=== PATIENT | male | born 1965 | race Caucasian/White ===

== ENCOUNTER 2023-09-07 15:38 | Emergency (ER) | payer OTHER, SELFPAY ==
[2023-09-07 15:47] VITALS: BP 138/96; PULSE 71; RESP 16; TEMP 36.6; O2SAT 99
--- NOTE | 2023-09-07 15:51 | ECG_ITS ---
[facility] [address] Test Date: 2023-09-07 Pat Name: Antonio Villagomez Department: Room: Gender: M Beer Brewer: : 1965 Requested By: Cecily Harmon Order Number: [id number] Reading MD: Jeff Villa D.O. Measurements Intervals [place] Rate: 72 P: 60 ID: [id number] QRS: -18 QRSD: 110 T: 3 QT: 389 QTc: 426 Interpretive Statements SINUS RHYTHM INCOMPLETE RIGHT BUNDLE BRANCH BLOCK BORDERLINE ECG No previous ECG available for comparison Electronically Signed On 09-11-2023 08:28:49 CDT by Jeff Villa D.O.
--- NOTE | 2023-09-07 16:14 | ED.CHESTPAIN ---
HPI - Chest Pain General Chief Complaint: Chest Pain Stated Complaint: Chest Pain Time Seen by Provider: 09/07/23 16:14 Source: patient Mode of arrival: ambulatory Limitations: no limitations History of Present Illness HPI narrative: 57-year-old male with history of high cholesterol presents today with complaint of left-sided chest pain radiating to left arm. Patient states that around 1:30 p.m. today he was cleaning out a garage and began to have left-sided chest pain. States that left-sided chest pain lasted approximately 30 minutes and then resolved. Continues to have aching to his left arm. Denies injury. Denies history of experiencing similar symptoms. States when he was experiencing the chest pain his friend checked his blood pressure and it was 158/102. Denies nausea vomiting. No dizziness or diaphoresis. Family history of NE. All systems reviewed and negative except as noted above. Related Data Home Medications Medication Instructions Recorded Confirmed dextroamphetamine-amphetamine 10 10 mg PO DAILY 09/07/23 09/07/23 mg tablet lorazepam 0.5 mg tablet 0.5 mg PO DIRECTED 09/07/23 09/07/23 pravastatin 10 mg tablet 10 mg PO DAILY 09/07/23 09/07/23 ropinirole 1 mg tablet 1 mg PO DIRECTED 09/07/23 09/07/23 Review of Systems Review of Systems: CONSTITUTIONAL: Denies fever, chills, or sweats. EYES: Denies visual changes, redness, or discharge. ENT: Denies rhinorrhea, congestion, sore throat, or otalgia. CARDIOVASCULAR: Reports left-sided chest pain radiating to left arm. Denies palpitations, or edema. RESPIRATORY: Denies cough or dyspnea. GASTROINTESTINAL: Denies abdominal pain, nausea, vomiting, or diarrhea. GENITOURINARY: Denies dysuria or hematuria. SKIN: Denies rash or itching. MUSCULOSKELETAL: Denies back pain, joint pain, or myalgia. NEUROLOGIC: Denies headache, numbness, or weakness. PSYCHIATRIC: Denies anxiety or depression. All other systems reviewed are negative, except as documented in HPI. PMFSH Comments At time of signature, agree with nursing past medical, surgical, social and family history. There is no relevant family history pertinent to the presenting complaint. Exam Narrative: GENERAL: This is a well-nourished, well-developed patient, in no apparent distress. HEAD: normocephalic, atraumatic. EYES: PERRL. Sclera clear/white. Vision is grossly intact. EARS: External ears normal NOSE: External nose normal NECK: Neck supple, non-tender without lymphadenopathy, masses or thyromegaly. CARDIOVASCULAR: Regular rate and rhythm without murmurs, gallops, or rubs. RESPIRATORY: Clear to auscultation. Breath sounds equal bilaterally. No wheezes, rales, or rhonchi. SKIN: warm, Dry, intact with no suspicious lesions or rash, good texture and turgor. NEURO: awake, alert, and oriented to person, place and time. There were no obvious focal neurologic abnormalities. EXTREMITIES: No joint tenderness, effusion, or edema noted. Course Course Level of Care: Express Care Visit Vital Signs Vital signs: Vital Signs Temperature 36.6 C 09/07/23 15:47 Pulse Rate 71 09/07/23 15:47 Respiratory Rate 16 09/07/23 15:47 Blood Pressure 138/96 H 09/07/23 15:47 Pulse Oximetry 99 09/07/23 15:47 Temperature 36.6 C 09/07/23 15:47 Pulse Rate 71 09/07/23 15:47 Respiratory Rate 16 09/07/23 15:47 Blood Pressure 138/96 H 09/07/23 15:47 Pulse Oximetry 99 09/07/23 15:47 Reviewed MDM - Chest Pain MDM Narrative Medical decision making narrative: Patient reports 30 minutes left-sided chest pain with radiation to arm. Left chest pain has resolved but continues to have aching to left arm. Vital signs are normal. Patient nontoxic appearing. Recommend patient go to ER for further evaluation with cardiac enzymes. Patient refused transfer. Stated he would call his primary care physician in the morning. Patient is aware of diagnosis, understands and agrees to treatmen
== END 2023-09-07 16:30 | disposition left against medical advice (07) ==
PROVIDERS: Emergency Provider Nurse Practitioner Family
DX: R07.9 Chest pain, unspecified (principal); I45.10 Unspecified right bundle-branch block; E78.00 Pure hypercholesterolemia, unspecified
CPT/HCPCS: 93005; 99213; G0463

== ENCOUNTER 2024-08-21 06:08 | Inpatient (IN) | payer OTHER, SELFPAY ==
[2024-08-21] VITALS (24 sets, daily range): BP systolic 115–169; BP diastolic 73–110; PULSE 62–90; RESP 10–24; TEMP 37–37.2; O2SAT 92–100; BMI 27.6
--- NOTE | 2024-08-21 06:19 | ECG_ITS ---
Test Date: 2024-08-21 06:14:49 Measurements Intervals [place] Rate: 59 P: 62 AR: 157 QRS: -18 QRSD: 101 T: -22 QT: 420 QTc: 417 Interpretive Statements SINUS BRADYCARDIA ST ELEVATION IN THE HIGH LATERAL LEADS WITH RECIPROCAL ST DEPRESSIONS Compared to ECG 09/07/2023 15:54:55 STEMI NOW PRESENT Electronically Signed On 08-23-2024 14:01:53 CDT by Sary Cornejo M.D.
[2024-08-21 06:31] LABS: Basophils Percent Auto 0.3 % (0.2-1.2); Eosinophils Absolute Auto 0.1 K/mm3 (0-0.3); Eosinophils Percent Auto 0.8 % (0-4.4); Hematocrit 38.4 % (42.0-52.0); Immature Granulocyte Absolute 0.02 K/mm3 (0.00-0.031); Immature Granulocyte Percent A 0.3 % (0-0.5); Lymphocytes Absolute Auto 2.83 K/mm3 (0.9-3.2); Lymphocytes Percent Auto 45.1 % (18.3-44.2); Mean Corpuscular HGB Conc 33.9 g/dl (32-36); Mean Corpuscular Hemoglobin 29.5 pg (26-34); Mean Corpuscular Volume 87.3 fl (80-100); Mean Platelet Volume 10.3 fl (7.4-10.4); Monocytes Absolute Auto 0.6 K/mm3 (0.1-0.6); Monocytes Percent Auto 9.7 % (2.6-8.5); Neutrophils Absolute Auto 2.8 K/mm3 (1.3-6.7); Neutrophils Percent Auto 43.8 % (45.5-73.1); Platelet Count Result 192 k/mm3 (150-375); Red Cell Distribution Width 13.3 % (11.5-14.5); White Blood Count 6.3 K/mm3 (4.5-10.0)
--- NOTE | 2024-08-21 06:33 | PC.NURSE ---
patient states he uses viagra. nitro sublinginal was not given at this time.
[2024-08-21] MEDS: MORPHINE SULFATE (*CRX) 2 MG/ML INJ IV PUSH (06:35)
--- OUTSIDE RECORDS SUMMARY | 2024-08-21 06:38 | XMS_ITS | Clinical Summary ---
Author Organization [facility] Address [address] [place] [address] Phone Care Team Providers Care Grades 7 8 Tutor Name Role Phone Dima Henson MD Primary Care Provider [phone] Allergies Active Allergy Reactions Criticality Noted Date Comments Hydromorphone (Bulk) Rash,Itching 08/03/2012 Medications oxyCODONE-acetam inophen (PERCOCET) 10-325 mg Oral Tab Take 1 Tab by mouth every 4 hours as needed for Pain, Severe (For Pain Scale 7-10). 90 Tab 0 08/04/2012 Active cyclobenzaprine (FLEXERIL) 10 mg Oral tablet Take 1 Tab by mouth 3 times daily as needed for Spasm. 60 Tab 1 08/04/2012 Active oxyCODONE (ROXICODONE) 10 mg Oral tablet Take 1 Tab by mouth every 3 hours as needed for Pain, Break-Throu gh. 90 Tab 0 08/05/2012 Active docusate sodium (COLACE) 100 mg Oral capsule Take 1 Cap by mouth 2 times daily as needed for Constipatio n. 60 Cap 1 08/05/2012 Active acetaminophen-co deine (TYLENOL #3) 300-30 mg tabletIndication s:Wound infection after surgery, subsequent encounter,MRSA infection 08/08/2015 Active baclofen (LIORESAL) 10 mg tabletIndication s:Wound infection after surgery, subsequent encounter,MRSA infection 09/12/2015 Active meloxicam (MOBIC) 15 mg tabletIndication s:Wound infection after surgery, subsequent encounter,MRSA infection 08/07/2015 Active ondansetron (ZOFRAN ODT) 8 mg Tablet, Rapid DissolveIndicati ons:Wound infection after surgery, subsequent encounter,MRSA infection 09/07/2015 Active rOPINIRole (REQUIP) 1 mg tabletIndication s:Wound infection after surgery, subsequent encounter,MRSA infection 08/28/2015 Active traMADol (ULTRAM) 50 mg tabletIndication s:Wound infection after surgery, subsequent encounter,MRSA infection 09/11/2015 Active traZODone (DESYREL) 50 mg tabletIndication s:Wound infection after surgery, subsequent encounter,MRSA infection 09/30/2015 Active Active Problems Problem Noted Date Diagnosed Date Wound infection after surgery 10/04/2015 MRSA infection 10/04/2015 Immunizations Immunization Administration Dates Next Due Influenza Seasonal Unspecified Formulation IM Social History Tobacco Use Types Packs/Day Years Used Date Smoking Tobacco: Former Alcohol Use Standard Drinks/Week Comments Yes 0 (1 standard drink = 0.6 oz pur e alcohol) socially Sex and Gender Information Value Date Recorded Sex Assigned at Not on file 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 Gender Identity Not on file Sexual Orientation Not on file Occupation Industry Job Start Date Job End Date Not on file Not on file Not on file Not on file Last Filed Vital Signs Vital Sign Reading Time Taken Comments Blood Pressure 138/93 10/04/2015 9:05 AM CDT Pulse 96 10/04/2015 9:05 AM CDT Temperature 36.9 C (98.5 F) 10/04/2015 9:05 AM CDT Respiratory Rate 18 08/05/2012 5:45 AM CDT Oxygen Saturation 98% 08/05/2012 5:45 AM CDT Inhaled Oxygen Concentration - - Weight 75.5 kg (166 lb 6.4 oz) 10/04/2015 9:05 A M CDT Height 170.2 cm (5' 7 ) 10/04/2015 9:05 AM CDT Body Mass Index 26.06 10/04/2015 9:05 AM CDT Plan of Treatment Health Maintenance Due Date Last Done Comments DTAP/TDAP/TD VACCINES (1 - Tdap) 10/16/1986 HEPATITIS B VACCINES (1 of 3 - 19+ 3-dose series) 09/1986 COLORECTAL SCREENING 10/16/2012 Colorectal Cancer Screening 10/16/2012 FIT-DNA Q 3 years 10/16/2012 FIT/FOBT Q 1 year 10/16/2012 Flex Sig/CT Colonography Q 5 years 10/16/2012 ZOSTER VACCINE (1 of 2) 10/16/2017 INFLUENZA VACCINE (#1) 2023 01/26/2012 Medical Devices Implanted Type Area Cutting Machine Offbearer Device Identifier Shelf Expiration Date Model / Serial / Lot Nail Retro Fem [place] 13x32 [id number] - [id number] Implanted:Qty: 1 on 08/03/2012 at [facility] Nail Right: Femur D[employer]HEW ORTHO 01/10/2017 [id number] / / [id number] Screw Trgn Lp 5.0x35mm [id number] - [id number] Implanted:Qty: 1 on 08/03/2012 at [facility] Screw Right: Femur D[employer]HEW ORTHO 05/13/2022 [id number] / / [id number] Screw Trgn Lp 5.0x75mm [id number] - [id number] Implanted:Qty: 1 on 08/03/2012 at [facility] Screw Right: Femur D[employer]PHEW ORTHO 12/11/2021 [id number] / / [id number] Explanted Type Area Cutting Machine Offbearer Device Identifier Shelf Expiration Date Model / Serial / Lot [employer] Nephew Im Nail Explanted:Qty: 1 on 08/03/2012 by Yojana Frances MD at [facility] Nail Right: Leg Synthes Screws Explanted:Qty: 2 by Yojana Frances MD at [facility] Screw Right: Leg [employer]hew Screws Explanted:Qty: 3 by Yojana Frances MD at [facility] Screw Right: Leg Screw Trgn Intrnl Cap 5.0x60mm [id number] - [id number] Explanted:Qty: 1 at [facility] Screw Right: Femur D[employer] NEPHEW ORTHO 06/10/2022 [id number] / / [id number] Insurance [id number] [place], [place] [id number] [facility] Address[facility] [id number] [place] [address] Advance Directives For more information, please contact: [phone] * Full Code (Latest Code Status on File) Date Activated Date Inactivated Comments 08/03/2012 1:47 PM 08/05/2012 8:11 PM * Full Code Date Activated Date Inactivated Comments 08/03/2012 6:41 AM 08/03/2012 1:47 PM Care Teams Grades 7 8 Tutor Relationship Specialty Start Date End Date Dima Henson MD [address] [facility] [address] [place] [address] PCP - General Internal Medicine 10/04/15
--- OUTSIDE RECORDS SUMMARY | 2024-08-21 06:38 | XMS_ITS | Clinical Summary ---
Author Organization [facility] [employer] Address [address] [place] [address] Care Team Providers Care Information Resources Director Name Role Phone Bandar Patricio APRN-DRAW BENCH OPERATOR Primary Care Provider Source Comments [facility],non-owned Affiliates and Associated Physician Practices is amultiple site organization consisting of ambulatory clinics and hospital sitesin [place], [place], [place] and [place]. This disclosure is being madepursuant to the Care Everywhere program and may not contain all information available regarding this patient. Last updated 18.[facility] [employer] Allergies Active Allergy Reactions Criticality Noted Date Comments Sulfamethoxazole W-Trimethoprim Rash Medium 05/14 Medications * Be aware that medications may not be up to date on this document. Alwaysverify current medications with the patient. 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 Continue Adderall. Methicillin resistant Staphylococcus aureus infe ction 05/05/2016 Atopic rhinitis 08/27/2013 Overview (06/19/2022): ALLERGIC RHINITIS NOS Benign neoplasm of skin of trunk 05/27/2011 Immunizations Immunization Administration Dates Next Due INFLUENZA VACCINE 03/05/2022 Social History Tobacco Use Types Packs/Day Years Used Date Smoking Tobacco: Every Day Cigarettes Smokeless Tobacco: Former Quit: 03/26/2012 Tobacco Cessation:Ready to Q uit: Not Asked; Counseling Given: Not Answered Alcohol Use Standard Drinks/Week Comments Not Asked 0 (1 standard drink = 0.6 oz pur e alcohol) Sex and Gender Information Value Date Recorded Sex Assigned at Not on file Legal Sex Male 6:31 AM ROLLER HELPER Gender Identity Not on file Sexual Orientation Not on file Last Filed Vital Signs Vital Sign Reading Time Taken Comments Blood Pressure 122/74 05/29/2018 12:15 PM ROLLER HELPER Pulse 79 05/29/2018 12:15 PM ROLLER HELPER Temperature 36.7 C (98.1 F) 05/29/2018 12:15 PM ROLLER HELPER Respiratory Rate 18 05/29/2018 12:15 PM ROLLER HELPER Oxygen Saturation 98% 05/29/2018 12:15 PM ROLLER HELPER Inhaled Oxygen Concentration - - Weight 73.5 kg (162 lb) 07/13/2023 8:58 AM CDT Height 170.2 cm (5' 7 ) 03/24/2013 8:37 AM ROLLER HELPER Body Mass Index - - Plan of Treatment Health Maintenance Due Date Last Done Comments COLOGUARD (AGES 45-75) - COLON CA SCREENING 1965 COLON MONITORING 1965 COLONOSCOPY - COLON CA SCREENING 1967 CT COLONOGRAPHY - COLON CA SCREENING 1965 Colorectal Cancer Screening 1965 FIT - COLON CA SCREENING 1965 FLEX SIG - COLON CA SCREENING 1965 HIV SCREENING 10/16/1982 HEPATITIS C SCREENING 10/12/1985 DTAP/TDAP/TD VACCINES (1 - Tdap) 10/16/1986 HEPATITIS B VACCINE (1 of 3 - 19+ 3-dose series) 10/16/1986 PNEUMOCOCCAL VACCINE 50+ (1 of 2 - PCV) 10/16/1986 ZOSTER VACCINE (1 of 2) 10/16/2017 COVID-19 VACCINE (1 - season) 2023 DEPRESSION SCREENING 04/13/2024 INFLUENZA VACCINE (Season Ended) 2024 03/05/2022, 01/18/2019, 12/28/2015, Additional history exists HIB VACCINE Aged Out No longer eligi ble based on patient's age to complete this topic HPV VACCINE Aged Out No longer eligi ble based on patient's age to complete this topic MENINGOCOCCAL (Group B) VACCINE SHARED DECISION-MAKING Aged Out No longer eligible based on patient's age to complete this topic MENINGOCOCCAL GROUPS A/C/Y/W VACCINE Aged Out No longer eligible based on patient's age to complete this topic Insurance [facility] Care Teams Information Resources Director Relationship Specialty Start Date End Date Bandar Patricio APRN-DRAW BENCH OPERATOR [address] [place] [id number] PCP - General Nurse Practitioner Primary Care 12/01/23
--- OUTSIDE RECORDS SUMMARY | 2024-08-21 06:38 | XMS_ITS | Encounter Summary ---
Author Organization [facility] Address [address] [place] [address] Care Team Providers Care Presto Log Operator Name Role Phone Dima Henson MD Primary Care Provider [phone] Reason for Visit * Reason Comments Medication Refill Encounter Details Date Type Department Care Team (Late st Contact Info) Description 04/01/2013 Refill [facility] Orthopaedic Trauma Surgery [address] [phone] Yojana Frances MD NO ADDRESS ON FILE Social History Tobacco Use Types Packs/Day Years Used Date Smoking Tobacco: Former Alcohol Use Standard Drinks/Week Comments Yes 0 (1 standard drink = 0.6 oz pur e alcohol) socially Sex and Gender Information Value Date Recorded Sex Assigned at Not on file 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
--- OUTSIDE RECORDS SUMMARY | 2024-08-21 06:39 | XMS_ITS | Encounter Summary ---
Author Organization [facility] Address [address] [place] [address] Care Team Providers Care Equity Research Analyst Name Role Phone Dima Henson MD Primary Care Provider [phone] Reason for Visit * Reason Comments Medication Refill Encounter Details Date Type Department Care Team (Late st Contact Info) Description 11/12/2012 Refill [facility] Orthopaedic Trauma Surgery [address] [phone] Yojana Frances MD NO ADDRESS ON FILE Social History Tobacco Use Types Packs/Day Years Used Date Smoking Tobacco: Former Alcohol Use Standard Drinks/Week Comments Yes 0 (1 standard drink = 0.6 oz pur e alcohol) socially Sex and Gender Information Value Date Recorded Sex Assigned at Not on file 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
--- OUTSIDE RECORDS SUMMARY | 2024-08-21 06:39 | XMS_ITS ---
Author Organization [employer] Address [address] [place] [address] Care Team Providers Care Equipment Operating Engineer Name Role Phone Bandar Patricio Primary Care Provider [phone] REASON FOR VISIT lorazepam Medications Medication SIG (Take, Route, Frequency, Duration) Notes Start Date End Date Status LORazepam 0.5 MG 1 tablet at bedtime as needed Orally Once a day for 30 days PDMP reviewed 08/08/24 08/08/2024 Active Social History Sex Assigned At : Social History Observation Description Sex Assigned At Male Encounters Encounter Location Date Provider Diagnosis [facility] [address] [place] [address] 08/07/2024 Bandar Patricio Insomnia due to me dical condition G47.01 Assessments Encounter Date Diagnosis (ICD Code) Assessment Notes Treatment Notes Treatment Clinical Notes Section Notes 08/07/2024 Insomnia due to medical condition (ICD-10 - G47.01) Plan Of Treatment Medication Medication Name Sig Start Date Stop Date Notes LORazepam 0.5 MG 1 tablet at bedtime as needed Orally Once a day for 30 days 08/08/2024 PDMP reviewed 5 Progress Notes * ELIZABETH JACOBS MDOB: [birth year] (58 yo M)Acc No.[id number]:08/07/2024 Patient: Manuel MELGARELIZABETH :1965 A ge:58 Y S ex:Male Address:[address] [place] [address], [phone] * Refills Refill LORazepam Tablet, 0.5 MG, Orally, 30 Tablet, 1 tablet at bedtime as needed, Once a day, 30 days, Refills=1 Subjective: * Chief Complaints: * L orazepam * Medical History: * Surgical History: * Hospitalization/Major Diagno stic Procedure: * Medications: Objective: * Vitals: * Physical Examination: Assessment: * Assessment: 1. I nsomnia due to medical condition - G47.01 Plan: * Treatment: * Procedure Codes: * true * Date: Generated for Stephania delacruz/Yane/Dov on: 0 08/21/2024 06:39 AM CDT
--- OUTSIDE RECORDS SUMMARY | 2024-08-21 06:39 | XMS_ITS ---
Author Organization [employer] Address [address] [place] [address] Care Team Providers Care Key Attendant Name Role Phone Bandar Patricio Primary Care Provider [phone] REASON FOR VISIT New Refill Request Social History Sex Assigned At : Social History Observation Description Sex Assigned At Male Encounters Encounter Location Date Provider Diagnosis [facility] [address] [place] [address] 08/02/2024 Bandar Patricio Plan Of Treatment No Information Progress Notes * ELIZABETH JACOBS MDOB: [birth year] (58 yo M)Acc No.[id number]:08/02/2024 Patient: Manuel AGEEELIZABETH SALGUERO :1965 A ge:58 Y S ex:Male Address:[address] [place] [address], [phone] * true * Date: Generated for Rufinoi nubia/Yane/eTransmitting on: 0 08/21/2024 06:39 AM CDT
--- OUTSIDE RECORDS SUMMARY | 2024-08-21 06:39 | XMS_ITS | Encounter Summary ---
Author Organization [facility] Address [address] [place] [address] Care Team Providers Care Food Service Ambassador Name Role Phone Dima Henson MD Primary Care Provider [phone] Reason for Visit * Reason Comments Medication Refill Encounter Details Date Type Department Care Team (Late st Contact Info) Description 12/10/2012 Refill [facility] Orthopaedic Trauma Surgery [address] [phone] Yojana Frances MD NO ADDRESS ON FILE Social History Tobacco Use Types Packs/Day Years Used Date Smoking Tobacco: Former Alcohol Use Standard Drinks/Week Comments Yes 0 (1 standard drink = 0.6 oz pur e alcohol) socially Sex and Gender Information Value Date Recorded Sex Assigned at Not on file 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
--- OUTSIDE RECORDS SUMMARY | 2024-08-21 06:39 | XMS_ITS | Encounter Summary ---
Author Organization [facility] Address [address] [place] [address] Care Team Providers Care Manager Of Case Management Name Role Phone Dima Henson MD Primary Care Provider [phone] Reason for Visit * Reason Comments Medication Refill Encounter Details Date Type Department Care Team (Late st Contact Info) Description 02/11/2013 Refill [facility] Orthopaedic Trauma Surgery [address] [phone] Yojana Frances MD NO ADDRESS ON FILE Social History Tobacco Use Types Packs/Day Years Used Date Smoking Tobacco: Former Alcohol Use Standard Drinks/Week Comments Yes 0 (1 standard drink = 0.6 oz pur e alcohol) socially Sex and Gender Information Value Date Recorded Sex Assigned at Not on file 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
--- OUTSIDE RECORDS SUMMARY | 2024-08-21 06:39 | XMS_ITS | Encounter Summary ---
Author Organization [facility] Address [address] [place] [address] Care Team Providers Care Padder Name Role Phone Unknown, Provider Primary Care Provider Bandar Guy APRN-CURRICULUM SUPERVISOR Primary Care Provider Reason for Visit * Reason Onset Date Comments Nurse Only 06/30/2022 Encounter Details Date Type Department Care Team (Late st Contact Info) Description 06/30/2022 Telephone [facility] [address] [facility], [facility] [place] [address] Radha Schrader MD [address] [facility] [place] [place] [address] Nurse Only Social History Tobacco Use Types Packs/Day Years Used Date Smoking Tobacco: Every Day Cigarettes Smokeless Tobacco: Former Quit: 03/26/2012 Alcohol Use Standard Drinks/Week Comments Not Asked 0 (1 standard drink = 0.6 oz pur e alcohol) Sex and Gender Information Value Date Recorded Sex Assigned at Not on file 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 Gender Identity Not on file Sexual Orientation Not on file documented as of this encounter Miscellaneous Notes * Telephone Encounter - Elvira Soliman Bam - 07/03/2022 9:48 AM CDT Pt calling to get results of biopsy that was done 2 weeks ago @ [facility] pt keep missing Dr Schrader call, * Telephone Encounter - Severiano Weaver - 06/30/2022 11:03 AM CDT Pt returning phone call documented in this encounter Plan of Treatment Not on file documented as of this encounter Visit Diagnoses Not on filedocumented in this encounter Care Teams Padder Relationship Specialty Start Date End Date Unknown, Provider PCP - General 07/13/23 11/30/23 Bandar Patricio, BARREL BUILDER-CURRICULUM SUPERVISOR [address] [place] [phone] PCP - General Nurse Practitioner Primary Care 12/01/23 documented as of this encounter
--- OUTSIDE RECORDS SUMMARY | 2024-08-21 06:39 | XMS_ITS | Patient Health Record ---
Author Organization [facility] [place] [place] Address [address] [facility] [address] [place], [place] [id number] Care Team Providers Care Claims Agent Right Of Way Name Role Phone PERRI VALENTINE Unavailable [phone] Reason For Referral No Information Immunizations Vaccine Route Administration Date Status Comme nts Pfizer 1st Dose IM Intramuscular 07/11/2020 Administered Social History Sex Assigned At : Social History Observation Description Sex Assigned At Male Plan Of Treatment No Information Insurance Providers Payer Name Payer Address Payer Phone Subscriber Number Group Number Insured Name Patient Relationship to Insured Coverage Start Date Coverage End Date [facility] [address] [address] [place], [place] [id number] ELIZABETH JACOBS Self - patient is the insured
--- OUTSIDE RECORDS SUMMARY | 2024-08-21 06:39 | XMS_ITS | Patient Health Record ---
Author Organization [facility] Address [address] [place] [address] Care Team Providers Care Change Management Consultant Name Role Phone Bandar Patricio Primary Care Provider Kapil Eaton Unavailable [phone] Elie Tramaine Unavailable [phone] Allergies No Known Allergies Results Component Value Reference Range Notes [place] DRUG ABUSE SCREEN, URN. ( 8 drug) 0628-8 Reviewed date:09/01/2023 09:18:04 AM Interpretation: Performing Lab:[id number], [facility], [address], [place] [address], Director - Jaziel Hernandez M.D. Notes/Report: NON FASTING AMPHETAMINES Positive <1000 ng/mL Amphetamines Qu ant 1889 ng/mL. BARBITURATES Negative <200 ng/mL THC Positive <100 ng/mL THC Quant 167 n g/mL. COCAINE Negative <300 ng/mL BENZODIAZEPINES Negative <200 ng/mL METHADONE Negative <300 ng/mL OPIATES Negative <300 ng/mL PHENCYCLIDINE(PCP) Negative <25 ng/mL CREATININE 147.2 >19.9 mg/dL NOTE: The Syva Creatinine Validity Test is intended for use in the quantitative determination of creatinine as an indicator of adulteration in human urine. This test is for forensic/toxicology use only. [place] Lipid Screen (Basic Lipid Profile) 0009-1 Reviewed date:09/01/2023 09:18:04 AM Interpretation: Performing Lab:[id number], [facility], [address], [place] [address], Director - Jaziel Hernandez M.D. Notes/Report: NON FASTING Cholesterol 187 <200 mg/dL HDL CHOL., DIRECT 59 >40 mg/dL Triglycerides 104 <150 mg/dL HDL as % of Cholesterol 32 >14 % Eval uation: BELOW AVERAGE RISK Chol/HDL Ratio 3.2 <7.4 Evaluation: B ELOW AVERAGE RISK LDL/HDL Ratio 1.88 <3.56 VLDL, CALCULATED 21 7-32 mg/dL Non-HDL Cholesterol 128 <130 mg/dL [place] Comprehensive Metabolic P tessa 3427-2 Reviewed date:09/01/2023 09:18:04 AM Interpretation: Performing Lab:[id number], [facility], [address], [place] [address], Director - Jaziel Hernandez M.D. Notes/Report: NON FASTING Total Protein 7.0 5.9-8.4 g/dL Albumin 4.9 3.5-5.2 g/dL Globulin 2.1 1.7-3.7 g/dL A/G Ratio 2.3 1.1-2.9 Ratio Sodium 137 135-147 mmol/L Potassium 4.3 3.5-5.5 mmol/L Chloride 102 96-108 mmol/L CO2 20 19-29 mmol/L BUN 16 6-20 mg/dL Creatinine 0.81 0.67-1.31 mg/dL e-GFR 104 >or=60 mL/min GFR categories in CKD Category GFR Terms ml/min/1.73 m2 G1 >or=90 Normal or high G2 60-89 Mildly decreased* G3a 45-59 Mildly to moderately decreased G3b 30-44 Moderately to severely decreased G4 15-29 Severely decreased G5 <15 Kidney failure Abbreviations: CKD, chronic kidney disease; GFR, glomerular filtration rate. *Relative to young adult level. In the absence of evidence of kidney damage, neither GFR category G1 nor G2 fulfill the criteria for CKD. NOTE: The National Kidney Foundation recommends using the CKD-EPI Creatinine Equation (2020) to estimate GFR in adults. The new CKD-EPI equation is in use 06/16/2022. BUN/Creat Ratio 19.8 10.0-28.0 Ratio Calcium 9.1 8.6-10.4 mg/dL Bilirubin, Total 0.6 <1.2 mg/dL Alk Phos 47 40-156 U/L AST 28 <40 U/L ALT 39 <41 U/L Glucose 107 70-99 mg/dL This urine specimen submitted as a nna-iqnpu-hz-custody was screened by enzyme immunoassay (EIA). Results should be used for clinical evaluation only. Many drug classes, notably amphetamines, opiates, benzodiazepines and PCP may report as positive due to cross-reactivity with certain OTC, herbal, or prescription medications. Confirmation testing is recommended for any positive EIA result. [place] LDL Direct 2194-9 Reviewed date:09/01/2023 09:18:04 AM Interpretation: Performing Lab:[id number], [facility], [facility] [address], [place] [address], Director - Jaziel Hernandez M.D. Notes/Report: NON FASTING LIPOPROT. (LDL) DIRECT 111 <100 mg/dL [place] CBC w/o DIFF (Hemogram)/P LAT. CT 0034-9 Reviewed date:12/08/2023 11:21:15 AM Interpretation:Normal Performing Lab:[id number], [facility], [facility] [address], [place] [address], Director - Jaziel Hernandez M.D. Notes/Report: NON FASTING WBC 6.20 3.66-10.60 x10(3)/uL RBC 4.73 3.94-5.76 x10(6)/uL HGB 13.9 12.0-16.9 g/dL HCT 42.4 34.6-49.6 % MCHC 32.8 31.7-35.3 g/dL MCV 89.6 78.0-98.0 fL MCH 29.4 25.8-33.1 pg RDW 12.9 12.2-15.3 % PLATELET COUNT 208 140-425 x10(3)/uL MPV 11.6 8.6-12.1 fL [place] Comprehensive Metabolic P tessa 3427-2 Reviewed date:12/08/2023 11:21:15 AM Interpretation: Performing Lab:[id number], [facility], [address], [place] [address], Director - Jaziel Hernandez M.D. Notes/Report: NON FASTING Total Protein 6.7 5.9-8.4 g/dL Albumin 4.7 3.5-5.2 g/dL Globulin 2.0 1.7-3.7 g/dL A/G Ratio 2.4 1.1-2.9 Ratio Sodium 137 135-147 mmol/L Potassium 4.4 3.5-5.5 mmol/L Chloride 103 96-108 mmol/L CO2 19 19-29 mmol/L BUN 21 6-20 mg/dL Creatinine 0.92 0.67-1.31 mg/dL e-GFR 98 >or=60 mL/min GFR categories in CKD Category GFR Terms ml/min/1.73 m2 G1 >or=90 Normal or high G2 60-89 Mildly decreased* G3a 45-59 Mildly to moderately decreased G3b 30-44 Moderately to severely decreased G4 15-29 Severely decreased G5 <15 Kidney failure Abbreviations: CKD, chronic kidney disease; GFR, glomerular filtration rate. *Relative to young adult level. In the absence of evidence of kidney damage, neither GFR category G1 nor G2 fulfill the criteria for CKD. NOTE: The National Kidney Foundation recommends using the CKD-EPI Creatinine Equation (2020) to estimate GFR in adults. The new CKD-EPI equation is in use 06/16/2022. BUN/Creat Ratio 22.8 10.0-28.0 Ratio Calcium 9.4 8.6-10.4 mg/dL Bilirubin, Total 0.6 <1.2 mg/dL Alk Phos 49 40-156 U/L AST 25 <40 U/L ALT 36 <41 U/L Glucose 103 70-99 mg/dL NOTE: Specimen submitted is LIPEMIC. This may cause inaccurate results. Please resubmit a fasting specimen at your earliest convenience. NOTE: The specimen submitted was SLIGHTLY hemolyzed. Some results may be affected. Please resubmit as needed. [place] LDL Direct 2194-9 Reviewed date:12/08/2023 11:21:15 AM Interpretation:Normal Performing Lab:[id number], [facility], [address], [place] [address], Director - Jaziel Hernandez M.D. Notes/Report: NON FASTING LIPOPROT. (LDL) DIRECT 95 <100 mg/dL [place] Lipid Screen (Basic Lipid Profile) 0009-1 Reviewed date:12/08/2023 11:21:15 AM Interpretation: Performing Lab:[id number], [facility], [address], [place] [address], Director - Jaziel Hernandez M.D. Notes/Report: NON FASTING Cholesterol 195 <200 mg/dL HDL CHOL., DIRECT 47 >40 mg/dL Triglycerides 349 <150 mg/dL HDL as % of Cholesterol 24 >14 % Eval uation: AVERAGE RISK Chol/HDL Ratio 4.1 <7.4 Evaluation: B [facility] AVERAGE RISK LDL/HDL Ratio 2.02 <3.56 VLDL, CALCULATED 70 7-32 mg/dL Non-HDL Cholesterol 148 <130 mg/dL Iron and TIBC-[id number] Reviewed date:06/27/2024 08:23:26 AM Interpretation:Normal Performing Lab:[facility], [address] [place] [address], Phone - [phone], Director - Meka Notes/Report: Iron Bind.Cap.(TIBC) 350 250-450 ug/dL UIBC 275 111-343 ug/dL Iron 75 38-169 ug/dL Iron Saturation 21 15-55 % Magnesium-127571 Reviewed date:06/27/2024 08:23:27 AM Interpretation:Normal Performing Lab:[facility], [address] [place] [address], Phone - [phone], Director - Anjelica Notes/Report: Magnesium 1.9 1.6-2.3 mg/dL CBC With Differential/Platel et-[id number] Reviewed date:06/27/2024 08:23:27 AM Interpretation:Normal Performing Lab:[address], Phone - [phone], Director - [facility] Notes/Report: WBC 6.4 3.4-10.8 x10E3/uL RBC 4.95 4.14-5.80 x10E6/uL Hemoglobin 14.5 13.0-17.7 g/dL Hematocrit 43.4 37.5-51.0 % MCV 88 79-97 fL MCH 29.3 26.6-33.0 pg MCHC 33.4 31.5-35.7 g/dL RDW 12.8 11.6-15.4 % Platelets 194 150-450 x10E3/uL Neutrophils 60 Not Estab. % Lymphs 30 Not Estab. % Monocytes 8 Not Estab. % Eos 1 Not Estab. % Basos 1 Not Estab. % Neutrophils (Absolute) 3.9 1.4-7.0 x10E3/uL Lymphs (Absolute) 1.9 0.7-3.1 x10E3/uL Monocytes(Absolute) 0.5 0.1-0.9 x10E3/uL Eos (Absolute) 0.1 0.0-0.4 x10E3/uL Baso (Absolute) 0.0 0.0-0.2 x10E3/uL Immature Granulocytes 0 Not Estab. % Immature Grans (Abs) 0.0 0.0-0.1 x10E3/uL Vitamin D, 50-Hsyzvwp-[id number] Reviewed date:06/27/2024 08:23:27 AM Interpretation:Low Performing Lab:[facility] [address] [place] [address], Phone - [phone], Director - PhDIsabel Notes/Report: Vitamin D, 25-Hydroxy 15.7 30.0-100.0 ng/mL Vitamin D deficiency has been defined by the [place] of [employer] and an Endocrine Society practice guideline as a level of serum 25-OH vitamin D less than 20 ng/mL (1,2). The Endocrine Society went on to further define vitamin D insufficiency as a level between 21 and 29 ng/mL (2). 1. IOM ([place] of [employer]). 2010. Dietary reference intakes for calcium and D. [place]: The National Academies Press. 2. Carla MF, Owen NC, Wesley MENESES, et al. Evaluation, treatment, and prevention of vitamin D deficiency: an Endocrine Society clinical practice guideline. JCEM. 2010; 96(7):1911-30. LDL Cholesterol (Direct)-120 295 Reviewed date:06/27/2024 08:23:27 AM Interpretation: Performing Lab:[facility], Phone - [phone], [facility] - [facility] Notes/Report: LDL Chol. (Direct) 105 0-99 mg/dL Lipid Panel-441188 Reviewed date:06/27/2024 08:23:27 AM Interpretation: Performing Lab:[facility], [address] [facility], Phone - [phone], Director - PhDRicjaretti Notes/Report: Cholesterol, Total 197 100-199 mg/dL Triglycerides 286 0-149 mg/dL HDL Cholesterol 55 >39 mg/dL VLDL Cholesterol Penny 48 5-40 mg/dL LDL Chol Calc ([facility]) 94 0-99 mg/dL LDL Calc Comment: See LDL Co mment if reported. Comp. Metabolic Panel (14)-3 99623 Reviewed date:06/27/2024 08:23:27 AM Interpretation: Performing Lab:[facility], [address] [facility], Phone - [phone], Director - PhDRicjaretti Notes/Report: Glucose 101 70-99 mg/dL BUN 16 6-24 mg/dL Creatinine 0.92 0.76-1.27 mg/dL eGFR 98 >59 mL/min/1.73 BUN/Creatinine Ratio 17 9-20 Sodium 136 134-144 mmol/L Potassium 5.1 3.5-5.2 mmol/L Chloride 100 96-106 mmol/L Carbon Dioxide, Total 22 20-29 mmol/L Calcium 9.7 8.7-10.2 mg/dL Protein, Total 6.6 6.0-8.5 g/dL Albumin 4.7 3.8-4.9 g/dL Globulin, Total 1.9 1.5-4.5 g/dL Bilirubin, Total 0.5 0.0-1.2 mg/dL Alkaline Phosphatase 55 44-121 IU/L AST (SGOT) 25 0-40 IU/L ALT (SGPT) 36 0-44 IU/L Stress Echo Reviewed date:12/17/2023 10:32:48 AM Interpretation:closing order Performing Lab: Notes/Report: closing order Reason For Referral Reason recent visit to a fter experiencing chest pain/discomfort. familial hx of heard disease Diagnosis 1 Chest discomfort (R0 7.89) Diagnosis 2 Sleep apnea in adult (G47.30) Referral Organization [facility] Referring Provider First Name Bandar Referring Provider Last Name Sheng Referring Provider Speciality Internal M edicine Referred Provider [facility] Referred Provider Specialty Cardiology General Notes Dee Dee Smith 2023 09:02:23 AM >Faxed this morning [phone] fax [phone], Dee Dee Smith 12/04/2023 11:25:48 AM >per Chalene brayden date/time 12/29 @ 10am, Dee Dee Smith 01/20/2024 09:42:06 AM >per Marilee pt was a NO SHOW and has not RS closing referral Referral Priority Routine Referral Appointment Date 12/30/2023 Reason pt's partner has wit nessed him snoring and pausing to breathe Diagnosis 1 Daytime sleepiness ( R40.0) Diagnosis 2 Suspected sleep apne a (R29.818) Referral Organization [facility] Referring Provider First Name Bandar Referring Provider Last Name Sheng Referring Provider Speciality Internal M edicine Referred Provider Altagracia Huber Referred Provider Specialty Sleep Medici ne General Notes Dee Dee Smith 2023 02:53:52 PM >Faxed today [phone] fax [phone], Dee Dee Smith 12/21/2023 10:25:44 AM >refaxing to [phone] Ella 12/23/2023 09:15:40 AM >per Anna referral received also left vm with scheduling phone number Referral Priority Routine Referral Appointment Date 03/01/2024 Reason pt is overdue for hi s first colonoscopy Diagnosis 1 Screening for malign ant neoplasm of colon (Z12.11) Referral Organization [facility] Referring Provider First Name Bandar Referring Provider Last Name Sheng Referring Provider Speciality Internal edicine Referred Provider [facility] Referred Provider Specialty Gastroentero logy General Notes Dee Dee Smith 2023 07:09:10 AM >Faxed this morning [phone] fax [phone], Dee Dee Smith 03/16/2024 09:06:48 AM >per Hoa referral received office has reached out to pt also left vm with scheduling number, Dee Dee Smith 04/29/2024 09:48:54 AM >RS for 05/04 @ 11:30amSarah Ella 05/25/2024 11:09:02 AM >per Mildred pt brayden date/time 07/22 @ 7:30am, Dee Dee Smith 07/25/2024 11:33:27 AM >juan manuel Levy pt RS for 02/24 @ 9:30am Referral Priority Routine Referral Appointment Date 02/24/2025 Medications Medication SIG (Take, Route, Frequency, Duration) Notes Start Date End Date Status Gabapentin 300 MG as directed Orally at bedtime for 30 days take one capsule 1 to 2 hours before symptoms usually start in the evening 06/29/2024 Active valACYclovir HCl 1 GM 1 tablet Orally twice daily for 10 days 01/08/2023 08/24/2024 Active LORazepam 0.5 MG 1 tablet at bedtime as needed Orally Once a day for 30 days PDMP reviewed 08/08/24 08/08/2024 Active Pravastatin Sodium 10 MG TAKE 1 TABLET BY MOUTH DAILY for 90 days Active Amphetamine-Dextroamp hetamine 10 MG 1 tablet Orally Twice a day for 30 days 28 days between fills PDMP reviewed 08/03/24 08/04/2024 Active Lisinopril 5 MG 1 tablet Orally Once a day for 90 days Active Immunizations Vaccine Route Administration Date Status Comme nts Influenza virus vaccine, quadrivalent (IIV4), split virus, 0.25 mL dosage Unknown 03/12/2021 Administered COVID-19 (Sars-COV-2) vaccin e, unspecified Unknown 07/12/2020 Administered COVID-19 (Sars-COV-2) vaccin e, unspecified Unknown 08/11/2020 Administered COVID-19 (Sars-COV-2) vaccin e, unspecified Unknown 03/12/2021 Administered Social History Tobacco Use: Social History Observation Description Date Details (start date - stop date) Current Smoker 01/11/1985 - NA Sex Assigned At : Social History Observation Description Sex Assigned At Male Household Question Answer Notes Marital status: single Number of adults in household: 1 Number of children in household: 0 Tobacco Use/Smoking Question Answer Notes Tobacco use: current smoker When did you start smoking? 01/11/1985 How often do you smoke cigarettes? every day How many cigarettes a day do you smoke? 11-20 How soon after you wake up d o you smoke your first cigarette? 31-60 minutes Are you interested in quitting? Not ready to mehdi t Additional Findings: Tobacco User Modera te cigarette smoker (10-19 cigs/day) Sexual History Question Answer Notes Had sex in the past 12 months (vaginal, oral, or anal)? Yes Have you ever had a Sexually transmitted disease ? No Tobacco use other than smoking: Question Answer Notes Are you an other tobacco user? 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) Testicular hypofunction (E29.1) 01/05/20 Active confirmed Problem Vitamin B deficiency (05116326) Vitamin B deficiency, unspecified (E53.9) 01/05/20 Active confirmed Problem Vitamin D deficiency (68882457) Vitamin D deficiency, unspecified (E55.9) 01/05/20 Active confirmed Problem Mixed hyperlipidemia (735203510) Mixed hyperlipidemia (E78.2) 10/10/19 Active confirmed Problem Restless legs syndrome (01235643) Restless legs syndrome (G25.81) 10/10/19 Active confirmed Problem Insomnia (891213102) Insomnia due to medical condition (G47.01) 10/10/19 Active confirmed Problem Abnormal glucose level (013802837) Other abnormal glucose (R73.09) 01/05/20 Active confirmed Problem Long-term current use of drug therapy (621028751) 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) 01/05/20 Active confirmed Problem Elevated blood pressure reading without diagnosis of hypertension (696119645) Elevated blood-pressure reading, w/o diagnosis of htn (R03.0) 02/06/20 Active confirmed Problem Lower urinary tract symptoms due to benign prostatic hypertrophy (06152348963551) Benign prostatic hyperplasia with lower urinary tract symp (N40.1) 10/10/19 Active confirmed Problem Attention deficit hyperactivity disorder, 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, 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) 06/29/20 22 Active confirmed Vital Signs Heart Rate 83 /min 06/23/2024 Height-cm 170.18 cm 06/23/2024 Oximetry 95 % 06/23/2024 Blood pressure diastolic 106 mm Hg 06/23/2024 Weight-kg 79.83 kg 06/23/2024 Height 67 in 06/23/2024 Blood pressure systolic 153 mm Hg 06/23/2024 Weight 176 lbs 06/23/2024 BMI 27.56 kg/m2 06/23/2024 Encounters Encounter Location Date Provider Diagnosis [address] [address] 08/26/2023 Bandar Patricio Attn-defct hyperacti vity disorder, predom inattentive type F90.0 ; Restless legs syndrome G25.81 ; Mixed hyperlipidemia E78.2 ; Insomnia due to medical condition G47.01 ; Elevated blood-pressure reading, w/o diagnosis of htn R03.0 ; Herpesviral infection, unspecified B00.9 and Other fatigue R53.[address] [address] 11/30/2023 Bandar Patricio Attn-defct hyperacti vity disorder, predom inattentive type F90.0 ; Restless legs syndrome G25.81 ; Mixed hyperlipidemia E78.2 ; Insomnia due to medical condition G47.01 ; Elevated blood-pressure reading, w/o diagnosis of htn R03.0 ; Herpesviral infection, unspecified B00.9 ; Other fatigue R53.83 ; Chest discomfort R07.89 and Trigger ring finger of left hand M65.[address] [address] 03/08/2024 Bandar Patricio Attn-defct hyperacti vity disorder, predom inattentive type F90.0 ; Restless legs syndrome G25.81 ; Mixed hyperlipidemia E78.2 ; Insomnia due to medical condition G47.01 ; Elevated blood-pressure reading, w/o diagnosis of htn R03.0 ; Herpesviral infection, unspecified B00.9 ; Other fatigue R53.83 and Trigger ring finger of left hand M65.[address] [address] 03/16/2024 Tramaine Delgadillo Trigger finger, left ring finger M65.342 [facility] [address] [place] [address] 06/23/2024 Bandar Patricio Mixed hyperlipidemia E78.2 ; Restless legs syndrome G25.81 ; Vitamin B deficiency, unspecified E53.9 ; Vitamin D deficiency, unspecified E55.9 ; Primary hypertension I10 ; Fatigue, unspecified type R53.83 ; Attn-defct hyperactivity disorder, predom inattentive type F90.0 and Insomnia due to medical condition G47.01 [facility] [address] [place] [address] 10/07/2023 Kapil Scheperle Attn-defct hyperacti vity disorder, predom inattentive type F90.[address] [address] 11/24/2023 Bandar Patricio [address] [address] 11/30/2023 Bandar Patricio [address] [address] 12/15/2023 Kapil Scheperle Attn-defct hyperacti vity disorder, predom inattentive type F90.0 [facility] [address] [place] [address] 01/19/2024 Kapil Scheperle Attn-defct hyperacti vity disorder, predom inattentive type F90.[address] [address] 02/23/2024 Bandar Patricio [address] [address] 02/23/2024 Kapil Scheperle Attn-defct hyperacti vity disorder, predom inattentive type F90.0 [facility] [address] [place] [address] 02/23/2024 Bandar Patricio Insomnia due to medi penny condition G47.01 [facility] [address] [place] [address] 03/17/2024 Kapil Scheperle Attn-defct hyperacti vity disorder, predom inattentive type F90.[address] [address] 05/24/2024 Bandar Patriico Insomnia due to medi penny condition G47.[address] [address] 11/06/2023 Kapil Scheperle Attn-defct hyperacti vity disorder, predom inattentive type F90.0 and Insomnia due to medical condition G47.[address] [address] 12/11/2023 Bandar Patricio Attn-defct hyperacti vity disorder, predom inattentive type F90.[address] [address] 04/27/2024 Kapil Scheperle Attn-defct hyperacti vity disorder, predom inattentive type F90.[address] [address] 05/29/2024 Kapil Scheperle Attn-defct hyperacti vity disorder, predom inattentive type F90.[address] [address] 06/27/2024 Kapil Scheperle Attn-defct hyperacti vity disorder, predom inattentive type F90.[address] [address] 06/27/2024 Bandar Patricio Restless legs syndro me G25.[address] [address] 07/08/2024 Bandar Patricio Herpesviral infectio n, unspecified B00.[address] [address] 07/15/2024 Bandar Patricio Restless legs syndro me G25.[address] [address] 07/15/2024 Bandar Patricio Herpesviral infectio n, unspecified B00.[address] [address] 08/02/2024 Kapil Scheperle Attn-defct hyperacti vity disorder, predom inattentive type F90.[address] [address] 08/02/2024 Bandar Patricio [address] [address] 08/07/2024 Bandar Patricio Insomnia due to medi penny condition G47.01 Assessments Encounter Date Diagnosis (ICD Code) Assessment Notes Treatment Notes Treatment Clinical Notes Section Notes 08/26/2023 Restless legs syndrome (ICD-10 - G25.81) Change dosage of ropinirole to 1mg tab, one tablet up to 6 times daily pt does not take Lorazepam nightly, only when legs are keeping him up and ropinirole doesn't seem to be helping 08/26/2023 Attn-defct hyperactivity disorder, 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) Cont Adderall 10mg BID UDS today. Only uses Adderall during the week Will request a refill on script from Dr. Eaton. 10/07/2023 Attn-defct hyperactivity disorder, 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) 11/06/2023 Attn-defct hyperactivity disorder, 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) 11/30/2023 Attn-defct hyperactivity disorder, 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) Cont Adderall 10mg BID Only uses Adderall during the week Will request a refill on script from Dr. Eaton when needed 12/11/2023 Attn-defct hyperactivity disorder, 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) 12/15/2023 Attn-defct hyperactivity disorder, 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) 01/19/2024 Attn-defct hyperactivity disorder, 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) 02/23/2024 Attn-defct hyperactivity disorder, 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) 02/23/2024 Insomnia due to medical condition (ICD-10 - G47.01) 03/08/2024 Restless legs syndrome (ICD-10 - G25.81) Change dosage of ropinirole to 1mg tab, one tablet up to 6 times daily pt does not take Lorazepam nightly, only when legs are keeping him up and ropinirole doesn't seem to be helping 03/16/2024 Trigger finger, left ring finger (ICD-10 - M65.342) Injection given today per procedural note below and with consent. He tolerated the procedure well. Discussed possibility of post injection steroid flare. 03/17/2024 Attn-defct hyperactivity disorder, 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) 04/27/2024 Attn-defct hyperactivity disorder, 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) 05/24/2024 Insomnia due to medical condition (ICD-10 - G47.01) 05/29/2024 Attn-defct hyperactivity disorder, 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) 03/08/2024 Attn-defct hyperactivity disorder, 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) Cont Adderall 10mg BID Only uses Adderall during the week Will request a refill on script from Dr. Eaton when needed 06/23/2024 Mixed hyperlipidemia (ICD-10 - E78.2) 06/23/2024 Restless legs syndrome (ICD-10 - G25.81) recommend stopping the ropinirole and starting carbidopa levodopa as needed up to 3xs a week start carbidopa levodopa 25mg/100mg as needed in the evening, at bedtime, or upon waking during the night due to RLS symptoms 06/27/2024 Attn-defct hyperactivity disorder, 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) 06/27/2024 Restless legs syndrome (ICD-10 - G25.81) 07/08/2024 Herpesviral infection, unspecified (ICD-10 - B00.9) 07/15/2024 Restless legs syndrome (ICD-10 - G25.81) 07/15/2024 Herpesviral infection, unspecified (ICD-10 - B00.9) 08/02/2024 Attn-defct hyperactivity disorder, 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) 08/07/2024 Insomnia due to medical condition (ICD-10 - G47.01) 06/23/2024 Vitamin B deficiency, unspecified (ICD-10 - E53.9) 03/08/2024 Mixed hyperlipidemia (ICD-10 - E78.2) Pt not fasting today Cont with pravastatin 10mg tab dailydrastic improvement since starting 11/30/2023 Restless legs syndrome (ICD-10 - G25.81) Change dosage of ropinirole to 1mg tab, one tablet up to 6 times daily pt does not take Lorazepam nightly, only when legs are keeping him up and ropinirole doesn't seem to be helping 11/06/2023 Insomnia due to medical condition (ICD-10 - G47.01) 08/26/2023 Mixed hyperlipidemia (ICD-10 - E78.2) Check labs today. Pt is fasting Cont with pravastatin 10mg tab dailydrastic improvement 08/26/2023 Insomnia due to medical condition (ICD-10 - G47.01) Trazodone was not helping him. Sleeping better since increasing ropinirole Lorazepam PRN and does not take this nightly 11/30/2023 Mixed hyperlipidemia (ICD-10 - E78.2) Check labs today. Pt is fasting Cont with pravastatin 10mg tab dailydrastic improvement 03/08/2024 Insomnia due to medical condition (ICD-10 - G47.01) Sleep has improved with mag supplement Lorazepam PRN and does not take this nightly 06/23/2024 Vitamin D deficiency, unspecified (ICD-10 - E55.9) 03/08/2024 Elevated blood-pressure reading, w/o diagnosis of htn (ICD-10 - R03.0) BP elevated at 140/97 Cont lisinopril 5mg PO daily encouraged pt to cut back on smoking, consume less caffeine, and watch salt intake 08/26/2023 Elevated blood-pressure reading, w/o diagnosis of htn (ICD-10 - R03.0) Pt continues to manage stress, consume less caffeine, and watch salt intake 11/30/2023 Insomnia due to medical condition (ICD-10 - G47.01) Trazodone was not helping him. Sleeping better since increasing ropinirole Lorazepam PRN and does not take this nightly 06/23/2024 Primary hypertension (ICD-10 - I10) 08/26/2023 Herpesviral infection, unspecified (ICD-10 - B00.9) No outbreaks recently. Cont with Valtrex 1g for 5 days when outbreak occurs 06/23/2024 Fatigue, unspecified type (ICD-10 - R53.83) 11/30/2023 Elevated blood-pressure reading, w/o diagnosis of htn (ICD-10 - R03.0) BP elevated at 140/90 Recommend starting a low dose anti-hypertensiv e Pt continues to manage stress, consume less caffeine, and watch salt intake 03/08/2024 Herpesviral infection, unspecified (ICD-10 - B00.9) No outbreaks recently. Cont with Valtrex 1g for 5 days when outbreak occurs 11/30/2023 Herpesviral infection, unspecified (ICD-10 - B00.9) No outbreaks recently. 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) 08/26/2023 Other fatigue (ICD-10 - R53.83) improved since changing to days 06/23/2024 Insomnia due to medical condition (ICD-10 - G47.01) 03/08/2024 Trigger ring finger of left hand (ICD-10 - M65.342) refer to JEANNTETE for trigger finger injection 11/30/2023 Other fatigue (ICD-10 - R53.83) improved since changing to days 11/30/2023 Chest discomfort (ICD-10 - R07.89) 11/30/2023 Trigger ring finger of left hand (ICD-10 - M65.342) Plan Of Treatment No Information Insurance Providers Payer Name Payer Address Payer Phone Subscriber Number Group Number Insured Name Patient Relationship to Insured Coverage Start Date Coverage End Date [facility] [address] [place], [place] [id number] ELIZABETH JACOBS Self - patient is the insured Medical (General) History Medical History History ICD Code Problems: Attention deficit hyperactivit y disorder Fatigue General symptom Herpes simplex Insomnia Restless legs Surgical History Surgery Date(Month/Year) Procedure on hip ([id number]) 03/27/2012 Procedure on femur ([id number]) 2 Procedure on tendon ([id number]) left bic ep , and MRSA 10/11/2013
--- OUTSIDE RECORDS SUMMARY | 2024-08-21 06:39 | XMS_ITS ---
Author Organization [facility] Address [address] [place] [address] Care Team Providers Care Dredgemaster Name Role Phone Bandar Patricio Primary Care Provider Kapil Eaton Unavailable [phone] REASON FOR VISIT adderall Medications Medication SIG (Take, Route, Frequency, Duration) Notes Start Date End Date Status Amphetamine-Dextroam phetamine 10 MG 1 tablet Orally Twice a day for 30 days 28 days between fills PDMP reviewed 08/03/24 08/04/2024 Active Social History Sex Assigned At : Social History Observation Description Sex Assigned At Male Encounters Encounter Location Date Provider Diagnosis [facility] [address] 08/02/2024 Kapil Eaton Attn-defct hyperac tivity disorder, predom inattentive type F90.0 Assessments Encounter Date Diagnosis (ICD Code) Assessment Notes Treatment Notes Treatment Clinical Notes Section Notes 08/02/2024 Attn-defct hyperactivity disorder, 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) Plan Of Treatment Medication Medication Name Sig Start Date Stop Date Notes Amphetamine-Dextroamphet amine 10 MG 1 tablet Orally Twice a day for 30 days 08/04/2024 28 days between fills PDMP reviewed 08/03/24 Progress Notes * ELIZABETH JACOBS MDOB: [birth year] (58 yo M)Acc No.[id number]:08/02/2024 Patient: Manuel ELIZABETH MELGAR :1965 A ge:58 Y S ex:Male Address:[address] [place], [place] [address], [address] * Refills Refill Amphetamine-Dextroamphetamine Tablet, 10 MG, Orally, 60 Tablet, 1 tablet, Twice a day, 30 days, Refills=0 Subjective: * Chief Complaints: * A dderall * Medical History: * Surgical History: * Hospitalization/Major Diagno stic Procedure: * Medications: Objective: * Vitals: * Physical Examination: Assessment: * Assessment: 1. A ttn-defct hyperactivity disorder, predom inattentive type - F90.0 Plan: * Treatment: * Procedure Codes: * true * Date: Generated for Stephania delacruz/Yane/Gilmarsmitting on: 0 08/21/2024 06:39 AM CDT
--- OUTSIDE RECORDS SUMMARY | 2024-08-21 06:39 | XMS_ITS | Encounter Summary ---
Author Organization [facility] Address [address] [place] [address] Care Team Providers Care Director Hair Name Role Phone Unknown, Provider Primary Care Provider Badnar Guy APRN-HOUSE MOTHER Primary Care Provider Reason for Visit * Reason Onset Date Comments Appointment 06/10/2022 New Pt seeking s ooner appt due to family history of cancer and pt is now experiencing changing growing crust raised growth with discoloration on Nose and R Eye. Please call to assist with appt. Encounter Details Date Type Department Care Team (Late st Contact Info) Description 06/10/2022 Telephone [facility] [address] [facility] [place] [address] Zoe Nielsen MD [address] [facility] [address] [place] [address] Appointment (New Pt seeking sooner appt due to family history of cancer and pt is now experiencing changing growing crust raised growth with discoloration on Nose and R Eye. 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 Please call to assist with appt. NE RADIO INSTALLER AND SERVICER documented in this encounter Plan of Treatment Not on file documented as of this encounter Visit Diagnoses Not on filedocumented in this encounter Care Teams Director Hair Relationship Specialty Start Date End Date Unknown, Provider PCP - General 07/13/23 11/30/23 Bandar Patricio, MELTER CASTER-HOUSE MOTHER [address] [place] [phone] PCP - General Nurse Practitioner Primary Care 12/01/23 documented as of this encounter
--- NOTE | 2024-08-21 06:40 | ED_ITS ---
HPI - General Adult General Chief complaint: Chest Pain Stated complaint: STEMI Time Seen by Provider: 08/21/24 06:34 History of Present Illness HPI narrative: This is a 58-year-old history of tobacco use presenting for chest pain. Patient woke from sleep with crushing chest pain radiating to his left arm. Called EMS was found have a STEMI in the field. Present brought to the hospital for evaluation. Patient denies shortness of breath, lower extremity edema abdominal pain nausea vomiting or diarrhea. Patient does use Viagra w/ the last use within 24 hrs. He is also on amphetamine salts for ADHD. 40 packyear history Related Data Home Medications Medication Instructions Recorded Confirmed Last Taken Type dextroamphetamine-amphetamine 10 10 mg PO DAILY 09/07/23 09/07/23 Unknown History mg tablet lorazepam 0.5 mg tablet 0.5 mg PO DIRECTED 09/07/23 09/07/23 Unknown History pravastatin 10 mg tablet 10 mg PO DAILY 09/07/23 09/07/23 Unknown History ropinirole 1 mg tablet 1 mg PO DIRECTED 09/07/23 09/07/23 Unknown History Allergies Allergy/AdvReac Type Severity Reaction Status Date / Time cephalexin Allergy Unknown Rash Verified 08/21/24 06:19 Exam 2 Narrative: APPEARANCE: Diaphoretic, uncomfortable appearing Head: atraumatic. EYES: EOMI, NOSE: Atraumatic NECK: Trachea midline RESPIRATORY: No increased rate of breathing, clear to auscultation CARDIOVASCULAR: RRR, no peripheral edema ABDOMINAL: Non-distended soft nontender MUSCULOSKELETAl: No obvious deformities NEURO: Alert. Moving 4/4 extremities SKIN:: Warm, dry. Normal color PSYCHIATRIC: Normal affect Course Vital Signs Vital signs: Vital Signs Temperature 98.9 F 08/21/24 06:08 Pulse Rate 67 08/21/24 06:08 Respiratory Rate 24 H 08/21/24 06:08 Blood Pressure 144/92 H 08/21/24 06:08 Pulse Oximetry 100 08/21/24 06:08 Oxygen Delivery Room Air 08/21/24 06:08 Temperature 98.9 F 08/21/24 06:08 Pulse Rate 64 08/21/24 06:21 Respiratory Rate 10 L 08/21/24 06:21 Blood Pressure 138/96 H 08/21/24 06:21 Pulse Oximetry 98 08/21/24 06:21 Oxygen Delivery Room Air 08/21/24 06:19 Medical Decision Making MDM Narrative Medical decision making narrative: -Course: 58-year-old male presenting with crushing chest pain. EKG shows STEMI. STEMI alert activated. Interventional cardiology notified. Patient given morphine in oxygen for his chest pain. Nitro contraindicated due to the recent Viagra use. Patient be taken to chemical lab technician for PCI. Started on heparin Vital Signs Vital Signs: Vital Signs Temperature 98.9 F 08/21/24 06:08 Pulse Rate 67 08/21/24 06:08 Respiratory Rate 24 H 08/21/24 06:08 Blood Pressure 144/92 H 08/21/24 06:08 Pulse Oximetry 100 08/21/24 06:08 Oxygen Delivery Room Air 08/21/24 06:08 Temperature 98.9 F 08/21/24 06:08 Pulse Rate 64 08/21/24 06:21 Respiratory Rate 10 L 08/21/24 06:21 Blood Pressure 138/96 H 08/21/24 06:21 Pulse Oximetry 98 08/21/24 06:21 Oxygen Delivery Room Air 08/21/24 06:19 Lab Data 08/21/24 06:24 08/21/24 06:24 Labs: Lab Results 08/21/24 Range/Units 06:24 WBC 6.3 (4.5-10.0) K/mm3 RBC 4.40 L (4.6-6.20) M/mm3 Hgb 13.0 L (14.0-18.0) g/dL Hct 38.4 L (42.0-52.0) % MCV 87.3 (80-100) fl MCH 29.5 (26-34) pg MCHC 33.9 (32-36) g/dl RDW 13.3 (11.5-14.5) % Plt Count 192 (150-375) k/mm3 MPV 10.3 (7.4-10.4) fl Immature Gran % (Auto) 0.3 (0-0.5) % Neut % (Auto) 43.8 L (45.5-73.1) % Lymph % (Auto) 45.1 H (18.3-44.2) % Benson % (Auto) 9.7 H (2.6-8.5) % Eos % (Auto) 0.8 (0-4.4) % Baso % (Auto) 0.3 (0.2-1.2) % Lymph # (Auto) 2.83 (0.9-3.2) K/mm3 Benson # (Auto) 0.6 (0.1-0.6) K/mm3 Eos # (Auto) 0.1 (0-0.3) K/mm3 Baso # (Auto) 0.0 (0.0-0.1) K/mm3 Abs Immat Gran (auto) 0.02 (0.00-0.031) K/mm3 Absolute Neuts (auto) 2.8 (1.3-6.7) K/mm3 Absolute Nucleated RBC 0.000 (0.0-0.012) K/mm3 Nucleated RBC % 0.0 (0.0-0.2) % PT Pending INR Pending APTT Pending Sodium Pending Potassium Pending Chloride Pending Carbon Dioxide Pending Anion Gap Pending BUN Pending Creatinine Pending Estim Creat Clear Calc Pending Estimated GFR Pending Glucose Pending Calcium Pending Total Bilirubin Pending AST Pending ALT Pending Alkaline Phosphatase Pending Troponin I Pending Total Protein Pending Albumin Pending Triglycerides Pending Cholesterol Pending LDL Cholesterol Direct Pending HDL Direct Pending Critical Care Time Critical Care Time Critical Care Time: Yes Total Critical Care Time: 35 Discharge Plan Discharge Clinical Impression: ST elevation (STEMI) myocardial infarction Patient Disposition: Still a Patient Condition: Stable
[2024-08-21 06:41] LABS: INR 0.9; Prothrombin Time 12.9 Seconds (11.1-14.7)
[2024-08-21 06:42] LABS: Partial Thromboplastin Time 25.3 Seconds (22.3-36.8)
--- OUTSIDE RECORDS SUMMARY | 2024-08-21 06:43 | XMS_ITS | Referral Summary ---
Author Organization [facility] al Address [address] [place] [address] Care Team Providers Care Submarine Diver Name Role Phone Dima Henson MD Primary Care Provider Allergies Active Allergy Reactions Criticality Noted Date Comments Sulfamethoxazole-Trimethoprim Rash Medium 2018 Medications valACYclovir (VALTREX) 1 gram tablet Take 1 tablet (1,000 mg total) by mouth daily. 90 tablet 4 04/23/2017 Active baclofen (LIORESAL) 10 mg tablet Take 1 tablet (10 mg total) by mouth 3 (three) times a day 270 tablet 1 12/09/2018 Active traZODone (DESYREL) 50 mg tablet Take 3 tablets (150 mg total) by mouth nightly 90 tablet 6 05/02/2019 Active dextroamphetami ne-amphetamine XR (ADDERALL XR) 10 mg 24 hr capsule Take 1 capsule (10 mg total) by mouth every morning 30 capsule 05/09/2019 Active traMADoL (ULTRAM) 50 mg tablet Take 1 tablet (50 mg total) by mouth every 6 (six) hours as needed for pain 120 tablet 1 10/12/2019 Active dextroamphetami ne-amphetamine XR (ADDERALL XR) 10 mg 24 hr capsule Take 1 capsule (10 mg total) by mouth every morning 30 capsule 12/21/2019 Active rOPINIRole (REQUIP) 1 mg tablet Take 1 tablet (1 mg total) by mouth 3 (three) times a day 270 tablet 1 12/21/2019 Active Active Problems Problem Noted Date Diagnosed Date Attention deficit disorder (ADD) without hyperac tivity 06/28/2018 Assessment & Plan (01/18/2019 11:26 AM CDT): Symptoms are imp[roved. Continue Adderall. Assessment & Plan (06/28/2018 3:54 PM CDT): Symptoms are improved. Reduce dose of Adderall. Elevated liver function tests 06/28/2018 Assessment & Plan (01/18/2019 11:27 AM CDT): Reviewed negative hepatitis panel. Limit alcohol. Order lab. Assessment & Plan (06/28/2018 2:31 PM CDT): Reviewed RUQ US showing mildly fatty liver. Reviewed recent labs. AST reduced to 60 from 260. Advised alcohol cessation. Primary insomnia 04/23/2017 RLS (restless legs syndrome) 04/23/2017 Leg pain, anterior, right 04/23/2017 Assessment & Plan (01/18/2019 11:29 AM CDT): Continue tramadol. Annual physical exam 04/23/2017 Assessment & Plan (05/19/2018 2:55 PM PLACEMENT OFFICER): Reviewed diet and exercise goals. Await labs. Reviewed goal BMI. Advised annual Flu vaccine. Reviewed immunization and screening status. Continue trazodone for insomnia. Continue ropinirole for RLS. Advised colon cancer screening. Treat furuncle with bactrim. Symptoms consistent with ADD. Start adderall. Follow in 3 weeks. Assessment & Plan (04/23/2017 12:08 PM PLACEMENT OFFICER): Reviewed diet and exercise goals. Await labs. Reviewed goal BMI. Advised annual Flu vaccine. Reviewed immunization and screening status. Continue trazodone for insomnia. Continue ropinirole for RLS. Continue tramadol for right leg pain. Advised colonoscopy at 52. Methicillin resistant Staphylococcus aureus infe ction 05/05/2016 Elbow disorder 10/04/2015 Rupture of biceps tendon 08/07/2015 Insomnia 10/21/2014 Assessment & Plan (01/18/2019 11:31 AM CDT): Continue trazodone. Chronic pain due to trauma 10/21/2014 Pain of right lower extremity 10/21/2014 Arthritis 10/20/2014 Arthralgia of hip 10/20/2014 Snoring 04/02/2014 Restless legs 04/02/2014 Atopic rhinitis 08/27/2013 Overview (07/16/2016): ALLERGIC RHINITIS NOS Closed fracture of femur 05/06/2012 Closed fracture of scapula 05/06/2012 Benign neoplasm of skin of trunk 05/27/2011 Immunizations Immunization Administration Dates Next Due Influenza, Quadrivalent, Spl it, Preservative Free, Intradermal 12/28/2015 Influenza, Quadrivalent, Spl it, Preservative Free, Intramuscular 01/18/2019,04/13/2014 Influenza, Trivalent, IM (MDV) 01/12/2012 Influenza, Trivalent, Preservative Free, Intramu scular 02/13/2014 Tdap 10/27/2011 Social History Tobacco Use Types Packs/Day Years Used Date Smoking Tobacco: Former Cigarettes Smokeless Tobacco: Former Comments:6years Alcohol Use Standard Drinks/Week Comments Yes 0 (1 standard drink = 0.6 oz pur e alcohol) PHQ-2 Answer Date Recorded PHQ-2 Score 0 12/03/2018 Sex and Gender Information Value Date Recorded Sex Assigned at Not on file Legal Sex Male 11:32 PM PLACEMENT OFFICER Gender Identity Male 01/18/2019 2:16 PM CDT Sexual Orientation Straight 01/18/2019 2: 16 PM CDT Last Filed Vital Signs Vital Sign Reading Time Taken Comments Blood Pressure 124/84 10/20/2020 2:55 AM CDT Pulse 56 10/20/2020 2:55 AM CDT Temperature 36.6 C (97.8 F) 10/19/2020 10:37 PM CDT Respiratory Rate 18 10/20/2020 2:55 AM CDT Oxygen Saturation 99% 10/20/2020 2:55 AM CDT Inhaled Oxygen Concentration - - Weight 77.1 kg (170 lb) 10/19/2020 8:53 PM CDT Height 170.2 cm (5' 7 ) 10/19/2020 8:53 PM CDT Body Mass Index 26.63 10/19/2020 8:53 PM CDT Plan of Treatment Not on file Insurance . [place], [place] [id number] [place] [address] PPO [facility] [employer] PLAN . [place] [id number] [place] [address] CHOICE PLUS Care Teams Submarine Diver Relationship Specialty Start Date End Date Dima Henson MD [address] [facility] [address] [place] [address] PCP - General 05/28/16
--- OUTSIDE RECORDS SUMMARY | 2024-08-21 06:43 | XMS_ITS | Clinical Summary ---
Author Organization [facility] al Address [address] [place] [address] Care Team Providers Care Poker Dealer Name Role Phone Dima Henson MD Primary Care Provider [phone] Allergies Active Allergy Reactions Criticality Noted Date [...] 04/23/2017 Assessment & Plan (05/19/2018 2:55 PM HEAVY EQUIPMENT OPERATOR): Reviewed diet and exercise goals. Await labs. Reviewed goal BMI. Advised annual Flu vaccine. Reviewed immunization and screening status. Continue trazodone for insomnia. Continue ropinirole for RLS. Advised colon cancer screening. Treat furuncle with bactrim. Symptoms consistent with ADD. Start adderall. Follow in 3 weeks. Assessment & Plan (04/23/2017 12:08 PM HEAVY EQUIPMENT OPERATOR): Reviewed diet and exercise goals. Await labs. [...] Preservative Free, Intramu scular 02/13/2014 Tdap 10/27/2011 Surgical History Surgery Date Site/Laterality Comments TONSILLECTOMY Tonsillectomy VASECTOMY Vasectomy FEMUR FRACTURE SURGERY Femur Repair - Jonah placed (Added by TW Conv) Medical History Medical History Date Comments Hx Other Medical R femur fractur e s/p ORIF. Family History Medical History Relation Name Comments Coronary artery disease Father Lea nary artery disease; Heart disease Father Family history of cardiac disorder - (Added by TW Conv) Cancer Other 1 Family history of malignant neoplasm - Relation: Grandparent (Added by TW Conv) Diabetes Other 2 Family history of diabetes mellitus - Relation: Grandparent (Added by TW Conv) Relation Name Status Comments Father Alive Other 1 Other 2 Social History Tobacco Use Types Packs/Day Years Used Date Smoking Tobacco: Former Cigarettes Smokeless Tobacco: Former Comments:6years Alcohol Use Standard Drinks/Week Comments Yes 0 (1 standard drink = 0.6 oz pur e alcohol) PHQ-2 Answer Date Recorded PHQ-2 Score 0 12/03/2018 Sex and Gender Information Value Date Recorded Sex Assigned at Not on file Legal Sex Male 11:32 PM HEAVY EQUIPMENT OPERATOR Gender Identity Male 01/18/2019 2:16 PM CDT Sexual Orientation Straight 01/18/2019 2: 16 PM CDT Obstetrics History Last Filed Vital Signs Vital Sign Reading [...] Plan of Treatment Not on file Insurance [place] [address] PPO [facility] [employer] [facility] [employer] Care Teams Poker Dealer Relationship Specialty Start Date End Date Dima Henson MD [address] [facility] [address] [place], [place] [id number] PCP - General 05/28/16
[2024-08-21 06:48] LABS: Alanine Aminotransferase 54 U/L (6-50); Albumin Level 4.6 g/dL (3.5-5.1); Alkaline Phosphatase 55 U/L (38-126); Anion Gap 7 mmol/L (4-12); Aspartate Amino Transferase 45 U/L (17-59); Bilirubin,Total 0.7 mg/dL (0.2-1.3); Blood Urea Nitrogen 17 mg/dL (9-20); Calcium 9.6 mg/dL (8.4-10.2); Carbon Dioxide 28 mmol/L (22-30); Chloride 108 mmol/L (98-107); Cholesterol 208 mg/dL (0-200); Estimated CRCL calculation 93 ml/min; Estimated Glomerular Filt Rate > 60; Glucose 157 mg/dL (65-110); HDL Direct 52 mg/dL; Potassium 3.7 mmol/L (3.4-5.0); Sodium 143 mmol/L (137-145); Triglycerides 189 mg/dL (<150)
[2024-08-21 06:59] LABS: LDL Cholesterol Direct 110 mg/dL
[2024-08-21 07:02] LABS: Troponin I < 0.012 ng/mL (0.000-0.034)
[2024-08-21 07:49] LABS: Activated Clotting Time 222 SEC (74-137)
[2024-08-21 07:49] LABS: Activated Clotting Time 176 SEC (74-137)
--- NOTE | 2024-08-21 08:03 | P.CONCA_ITS ---
Assessment and Plan Assessment and plan (1) ST elevation (STEMI) myocardial infarction: Qualifiers: Involved coronary artery: other coronary artery Qualified Code(s): I 21.29 - ST elevation (STEMI) myocardial infarction involving other sites Code(s): I21.3 - ST elevation (STEMI) myocardial infarction of unspecified site Status: Acute Plan Problem list: Lateral STEMI status post PCI to 1st diagonal with 3.0 X 22 mm Medtronic norberto [place] Hyperlipidemia ADHD Tobacco use disorder Viagra use within the past 24 hours Plan: Admit to ICU IV fluids normal saline 1 L at 100 mL/hour Bedrest for 2 hours Obtain TTE Aspirin 81 mg daily indefinitely He was loaded with 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 Continue ticagrelor 90 mg b.i.d. Atorvastatin 80 mg daily Add metoprolol 12.5 mg p.o. b.i.d. Control risk factors including blood pressure, lipids, blood sugars Check and replace electrolytes as needed to keep K greater than 4 and Mg greater than 2 Cardiac rehab History of Present Illness History of Present Illness Consult date/time: 08/21/24 08:03 Reason For Visit: STEMI Narrative: 58-year-old male with past medical history of ADHD on amphetamine salts, 40 pack year history presented with chief complaint of crushing chest pain of intensity 10/10 that woke him up at 5:00 a.m. this morning. Pain is located in the left side of his chest with radiation to the left arm. No associated shortness of breath, diaphoresis. No palpitations, dizziness, lightheadedness, leg swelling, recent weight gain, presyncope, syncope, orthopnea, PND. He has a 40 pack-year history of smoking. He he reports ports use of Viagra within the past 24 hours. EKG showed sinus rhythm with ST elevations in lateral leads and reciprocal inferior ST depressions. Patient had emergent cardiac catheterization for lateral STEMI. He has stent to his 1st diagonal and tolerated the procedure well. Chest pain reduced to 2/10. Workup: Hemoglobin: 13 Platelet count: 192,1000 Creatinine: 0.83 Troponin: Less than 0.012 LDL: 110 EKG: Sinus rhythm, ST elevations in lateral leads, reciprocal ST depressions in inferior leads Review of Systems 2 Review of Systems: Complete review of systems was performed and negative other than those mentioned HPI Meds Home Medications and Allergies Home Medications Medication Instructions Recorded Confirmed Type dextroamphetamine-amphetamine 10 10 mg PO DAILY 09/07/23 09/07/23 History mg tablet lorazepam 0.5 mg tablet 0.5 mg PO DIRECTED 09/07/23 09/07/23 History pravastatin 10 mg tablet 10 mg PO DAILY 09/07/23 09/07/23 History ropinirole 1 mg tablet 1 mg PO DIRECTED 09/07/23 09/07/23 History Allergies Allergy/AdvReac Type Severity Reaction Status Date / Time cephalexin Allergy Unknown Rash Verified 08/21/24 06:19 Vital Signs Vital Signs - 24 hr 08/21/24 06:08 08/21/24 06:16 08/21/24 06:19 Temperature 37.2 C Pulse Rate 67 62 63 Respiratory Rate 24 H 16 Blood Pressure 144/92 H 138/96 H Pulse Oximetry 100 92 Oxygen Delivery Room Air 08/21/24 06:19 08/21/24 06:21 Temperature Pulse Rate 64 Respiratory Rate 10 L Blood Pressure 138/96 H Pulse Oximetry 95 98 Oxygen Delivery Room Air Exam 2 Narrative: General: Alert oriented x3, no acute distress Neck: Supple, no JVD Chest: Bilaterally clear to auscultation, no rales or rhonchi Cardiac: S1, S2 +, regular rate, regular rhythm, no murmurs or rubs Extremities: No pedal edema, no skin rash Neurologic: Alert and oriented x3, no focal neurological deficits Results Labs and Meds 08/21/24 06:24 08/21/24 06:24 Lab results: Cardiac Enzymes 08/21/24 Range/Units 06:24 AST 45 (17-59) U/L Troponin I < 0.012 (0.000-0.034) ng/mL Coagulation 08/21/24 Range/Units 06:24 PT 12.9 (11.1-14.7) Seconds APTT 25.3 (22.3-36.8) Seconds Lipids 08/21/24 Range/Units 06:24 Triglycerides 189 H (<150) mg/dL Cholesterol 208 H (0-200) mg/dL CBC 08/21/24 Range/Units 06:24 WBC 6.3 (4.5-10.0) K/mm3 RBC 4.40 L (4.6-6.20) M/mm3 Hgb 13.0 L (14.0-18.0) g/dL Hct 38.4 L (42.0-52.0) % Plt Count 192 (150-375) k/mm3 Lymph # (Auto) 2.83 (0.9-3.2) K/mm3 [place] # (Auto) 0.6 (0.1-0.6) K/mm3 Eos # (Auto) 0.1 (0-0.3) K/mm3 Baso # (Auto) 0.0 (0.0-0.1) K/mm3 Comprehensive Metabolic Panel 08/21/24 Range/Units 06:24 Sodium 143 (137-145) mmol/L Potassium 3.7 (3.4-5.0) mmol/L Chloride 108 H (98-107) mmol/L Carbon Dioxide 28 (22-30) mmol/L BUN 17 (9-20) mg/dL Creatinine 0.83 (0.7-1.3) mg/dL Glucose 157 H (65-110) mg/dL Calcium 9.6 (8.4-10.2) mg/dL AST 45 (17-59) U/L ALT 54 H (6-50) U/L Alkaline Phosphatase 55 (38-126) U/L Total Protein 7.0 (6.3-8.2) g/dL Albumin 4.6 (3.5-5.1) g/dL Patient Weight 08/21/24 23:59 Weight 76 kg
[2024-08-21 08:04] LABS: Activated Clotting Time 227 SEC (74-137)
--- NOTE | 2024-08-21 08:14 | WPDCARDPROC ---
Cardiac Cath Procedure Note Date of procedure:: 08/21/24 Performing physician:: Daly Lofton MD Indication:: CATHETERIZATION LABORATORY REPORT Anesthesia: Versed and Fentanyl were ordered and given in my presence at 6:55 a.m., procedure ended at 7:56 a.m.. Supervision of nurse monitored moderate sedation with Versed and Fentanyl was provided for 61 minutes. Versed: 2.5 mg Fentanyl: 200 mcg Pre-op Diagnosis: Lateral STEMI Post-op Diagnosis: Lateral STEMI status post successful IVUS guided PCI to 1st diagonal with 3.0 X 22 mm Medtronic norberto [place] Procedure(s): Left heart catheterization Selective right and left coronary angiography Right femoral access PCI to 100% thrombotic stenosis in the 1st diagonal with 3.0 X 22 mm Medtronic norberto [place] ([facility]) Access Site: Right femoral artery Brief History and Clinical Indications: 58-year-old male with past medical history of ADHD on amphetamine salts, 40 pack year history presented with chief complaint of crushing chest pain of intensity 10/10 that woke him up at 5:00 a.m. this morning. Pain is located in the left side of his chest with radiation to the left arm. No associated shortness of breath, diaphoresis. No palpitations, dizziness, lightheadedness, leg swelling, recent weight gain, presyncope, syncope, orthopnea, PND. He has a 40 pack-year history of smoking. He he reports ports use of Viagra within the past 24 hours. EKG showed sinus rhythm with ST elevations in lateral leads and reciprocal inferior ST depressions. Patient for emergent cardiac catheterization and PCI for lateral STEMI. All risks, benefits and alternatives to left heart catheterization with or without percutaneous coronary intervention was discussed at length with the patient. Risk of complications including but not limited to bleeding, infection, arrhythmia, stroke, worsening kidney function, blood loss, groin hematoma, limb loss, emergency coronary artery bypass grafting, and even were discussed with the patient and all questions were answered. The patient understood and wished to proceed. Time out called, patient name, date of , medical record number, allergies, procedure performed, identify Editor [employer] Photograph, patient and staff member concurred with accurate data, procedure carried on. Findings: LEFT HEART CATHETERIZATION FINDINGS: 1. Left main: The left main coronary artery is widely patent without any significant obstructive disease. 2. Left anterior descending: Proximal LAD with 30% stenosis. Mid LAD has diffuse 50-60% stenosis. A large 1st diagonal has 100% thrombotic occlusion with DIETER 0 flow. This is the culprit lesion for patient's presentation. 3. Left circumflex: The left circumflex artery and the main marginal branches have mild luminal irregularities without any significant obstructive angiographic disease. 4. Right coronary artery: The RCA has mild luminal irregularities without any significant obstructive angiographic disease. The RCA is the dominant vessel. It bifurcates into the RPDA and RPLA both of which are without any significant obstructive angiographic disease. 5. Left ventricle: A. End-diastolic pressure 19 mmHg. B. LV gram deferred. C. No significant gradient across aortic valve on catheter pullback. 6. Opening AO pressure 135/68/108 and closing AO pressure 114/73/90 3 mm Hg Description of Procedure: Informed consent signed and placed in the chart. Patient transferred to superintendent geophysical laboratory room. Prepped and draped in usual sterile fashion. 2% lidocaine in right groin area. Micropuncture needle used to access right common femoral artery with Seldinger technique under fluoroscopic guidance. J wire advanced, micropuncture cannula placed. Right iliofemoral angiogram performed, access confirmed and micropuncture cannula exchanged for 6-FR sheath. ? 6 Serbian JL4 guide catheter engaged Left Main Coronary Artery. 5 Serbian JR4 diagnostic catheter engaged Right Coronary Artery. Multiple orthogonal angiogram obtained and reviewed Five Serbian JR4 diagnostic catheter crossed aortic valve to obtain LVEDP, LV angiogram deferred. Procedure Description for PCI: Heparin was used for anticoagulation (ACT maintained above 250) Patient loaded with heparin at 70 units/kg. Six Serbian F JL4 guide catheter was used to intubate the left main 0.014 runthrough coronary wire was passed in to the 1st diagonal artery The lesion was pre-dilated with a 2.0 mm X 15 mm and 3.0 mm x 10 mm balloons inflated to high ARNIE A [employer] [place] IVUS was used to evaluate lesion morphology and vessel dimensions A 3.0 mm x 22 mm Medtronic norberto [place] was successfully deployed into 1st diagonal artery The stent was post-dilated with a 3.0 mm x 15 mm NC balloon inflated to high ARNIE Intracoronary NTG was administered Follow-up angiograms showed an excellent result Coronary wire and guide-catheter were removed Pre-procedure - DIETER 0 flow Post-procedure - DIETER 3 flow No angiographic complications identified. Hemostasis was achieved by 6 Serbian Angio-Seal Assessment: Lateral STEMI status post successful IVUS guided PCI to 1st diagonal with 3.0 X 22 mm Medtronic norberto [place] Hyperlipidemia ADHD Tobacco use disorder Viagra use within the past 24 hours Post Operative Condition: Stable No significant blood loss Disposition: ICU Plan: Admit to ICU IV fluids normal saline 1 L at 100 mL/hour Bedrest for 2 hours Obtain TTE Aspirin 81 mg daily indefinitely He was loaded with ticagrelor 180 mg in the superintendent geophysical laboratory. Continue ticagrelor 90 mg b.i.d. for 1 year Atorvastatin 80 mg daily Add metoprolol 12.5 mg p.o. b.i.d. Check and replace electrolytes as needed to keep K greater than 4 and Mg greater than 2 Cardiac rehab The above findings were discussed with the referring physician. Continue aggressive medical therapy and risk factor modification. Further recommendations and management per primary cardiology team. Daly Lofton MD, M.S., F.A.C.C. Interventional Cardiology
--- NOTE | 2024-08-21 08:17 | ADMGEN ---
This patient, Antonio Villagomez, was admitted to ICU-07 @ 0817. Patient/family oriented to hospital policies and general routines including ID bracelet, bed and alarms, visiting hours, pain management, procedures, bathroom and other care routines, personal items, smoking policy, room service/diet, and visiting hours. Information on how to activate the Rapid Response Team has been discussed. Patient/Family are encouraged to report perceived risks to care and to ask questions if they do not understand what they are told or what they should do.
--- NOTE | 2024-08-21 10:04 | WPDCNINT ---
Assessment and Plan Assessment and plan (1) ST elevation (STEMI) myocardial infarction: Qualifiers: Involved coronary artery: other coronary artery Qualified Code(s): I21.29 - ST elevation (STEMI) myocardial infarction involving other sites Code(s): I21.3 - ST elevation (STEMI) myocardial infarction of unspecified site Status: Acute Assessment and Plan: lateral STEMI status post PCI and drug-eluting stent placement admit to ICU and ICU telemetry monitoring Check echocardiogram dual antiplatelet therapy with aspirin and Brilinta, atorvastatin, beta-nadeem IV fluids for renal protection (2) Hyperlipidemia: Code(s): E78.5 - Hyperlipidemia, unspecified Status: Acute Assessment and Plan: atorvastatin (3) Tobacco abuse: Code(s): Z72.0 - Tobacco use Status: Acute Assessment and Plan: patient was encouraged and counseled to quit smoking. (4) ADHD: Code(s): F90.9 - Attention-deficit hyperactivity disorder, unspecified type Status: Acute Assessment and Plan: Adderall is on hold at this time Plan DVT prophylaxis - patient received heparin. A CT ordered. I anticipate patient will ambulate tomorrow. Nutrition - Diet ordered Code Status - Full Code Total Critical Care Time - 30 minutes Due to a high probability of clinically significant, life threatening deterioration, the patient required my highest level of preparedness to intervene emergently and I personally spent this critical care time directly and personally managing the patient. This critical care time included obtaining a history; examining the patient; pulse oximetry; ordering and review of studies; arranging urgent treatment with development of a management plan; evaluation of patient's response to treatment; frequent reassessment; and discussions with other providers. It was exclusive of separately billable procedures and treating other patients and teaching time. Please see Assessment and Plan section and the rest of the note for further information on patient assessment and treatment Customer Service Associate Consult Note Consult date: 08/21/24 Reason for consult: STEMI HPI: Antonio Villagomez is a 58 year old male with past medical history of ADHD, tobacco abuse, marijuana use presented to ER with chief complaint of chest pain. Patient woke up with chest pain and was middle of the chest question quality and radiating to left arm. Pain was 10 out 10 severe. No associated shortness of breath sweating nausea vomiting or palpitations. He states when he went to bed he had no symptoms. He did admit using viagra to the ER physician. All other systems were reviewed and were negative on arrival to ER patient was found to be having ST elevation on his EKG. Patient was diagnosed with STEMI and taken to cardiac catheterization lab. patient was found to be having little STEMI with thrombotic stenosis of diagnosed. Patient had a stent placed and now admitted to ICU for further evaluation management. Patient now denies any complaints and states this chest pain has resolved. . Review of Systems Review of Systems: All systems reviewed & are unremarkable except as noted in HPI and below ( HPI) [facility] Past Medical History Medical History ADHD Hyperlipidemia Tobacco abuse Social History Social History Smoking packs per day: 1 Smoking cigarettes per day: 20.0 Smoking status: Current every day smoker Tobacco type: cigarettes Alcohol intake: current Drinks per week: 12 Substance use: current Substance use type: marijuana Do You Feel Safe in your Home?: Yes Lack of Transportation: No Lack of Food: Never True Current Housing: I Have Housing Concerned About Future Housing: No Difficulty Paying Gas/Electric Bills: No Difficulty Paying for Meds: No Currently Unemployed: No Education: Decline to Answer Difficulty w/ Childcare or Family Care: No Spiritual care concerns: No Meds Home Medications and Allergies Home Medications Medication Instructions Recorded Confirmed Type dextroamphetamine-amphetamine 10 10 mg PO DAILY 09/07/23 08/21/24 History mg tablet lorazepam 0.5 mg tablet 0.5 mg PO DIRECTED 09/07/23 08/21/24 History pravastatin 10 mg tablet 10 mg PO DAILY 09/07/23 08/21/24 History ropinirole 1 mg tablet 1 mg PO DIRECTED 09/07/23 08/21/24 History gabapentin 300 mg capsule 300 mg PO QHS 08/21/24 08/21/24 History valacyclovir 1 gram tablet 1,000 mg PO PRN 08/21/24 08/21/24 History Allergies Allergy/AdvReac Type Severity Reaction Status Date / Time cephalexin Allergy Unknown Rash Verified 08/21/24 06:19 Vital Signs Vital Signs - 24 hr 08/21/24 06:08 08/21/24 06:16 08/21/24 06:19 Temperature 37.2 C Pulse Rate 67 62 63 Respiratory Rate 24 H 16 Blood Pressure 144/92 H 138/96 H Pulse Oximetry 100 92 Oxygen Delivery Room Air 08/21/24 06:19 08/21/24 06:21 08/21/24 08:30 Temperature Pulse Rate 64 85 Respiratory Rate 10 L Blood Pressure 138/96 H 122/90 Pulse Oximetry 95 98 Oxygen Delivery Room Air Exam Narrative: General: Pt is alert awake and in NAD Lungs/Chest: Trachea central Clear BS B/L, No crackles or wheezing. Cardiac: RRR. Normal S1 S2. No murmurs Circulation: Pedal pulses are intact and symmetrical. right groin cath site shows no hematoma or swelling. Abdomen: Normal bowel sounds.. Soft. NT. ND. Extremities: No clubbing, cyanosis or edema. Warm : De in place Neurologic: Follows commands. Moves all 4 extremities PERRL AO x3 Skin: No Rash Results Labs 08/21/24 06:24 08/21/24 06:24 Labs: Short CBC 08/21/24 Range/Units 06:24 WBC 6.3 (4.5-10.0) K/mm3 Hgb 13.0 L (14.0-18.0) g/dL Hct 38.4 L (42.0-52.0) % Plt Count 192 (150-375) k/mm3 BMP 08/21/24 06:24 Sodium 143 Potassium 3.7 Chloride 108 H Carbon Dioxide 28 BUN 17 Creatinine 0.83 Glucose 157 H Calcium 9.6 Cardiac Enzymes 08/21/24 Range/Units 06:24 Troponin I < 0.012 (0.000-0.034) ng/mL Liver Function 08/21/24 Range/Units 06:24 Total Bilirubin 0.7 (0.2-1.3) mg/dL AST 45 (17-59) U/L ALT 54 H (6-50) U/L Alkaline Phosphatase 55 (38-126) U/L Albumin 4.6 (3.5-5.1) g/dL Quality VTE Prophylaxis VTE prophylaxis: mechanical ordered Hospitalist MIPS Advance Care Plan I have confirmed that the patient's Advanced Care Plan is present, code status is documented, or surrogate decision maker is listed in patient medical record.: Yes Medication Reconciliation I have utilized all available resources to obtain, update and review the patients current medications (includes all prescriptions, OTC, herbals, cannabis, and nutritional supplements).: Yes
[2024-08-21] MEDS: ATORVASTATIN 40 MG TABLET 80 MG PO (10:26)
[2024-08-21] MEDS: SODIUM CHLORIDE 0.9% IV 1,000 ML 125 ML IV CONT (10:26)
[2024-08-21] MEDS: HEPARIN SOD/D5W 100 UNITS/ML 25,000 UNITS/250 ML BAG 9 UNITS IV CONT (10:26)
[2024-08-21] MEDS: METOPROLOL TARTRATE 12.5 MG TABLET PO ×2 (10:27→20:01)
[2024-08-21] MEDS: ACETAMINOPHEN 325 MG TABLET 650 MG PO (14:09)
[2024-08-21] MEDS: hydrALAZINE HCL 20 MG/ML VIAL 10 MG IV PUSH (17:32)
[2024-08-21 17:53] LABS: Partial Thromboplastin Time 34.8 Seconds (22.3-36.8)
[2024-08-21] MEDS: HEPARIN SODIUM 5,000 UNITS/ML VIAL 4000 UNITS IV PUSH (19:11)
--- NOTE | 2024-08-21 19:39 | ECG_ITS ---
Test Date: 2024-08-21 19:57:57 Measurements Intervals [place] Rate: 73 P: 64 NV: 159 QRS: 3 QRSD: 89 T: 29 QT: 360 QTc: 397 Interpretive Statements SINUS RHYTHM NONSPECIFIC T-WAVE ABNORMALITY Compared to ECG 08/21/2024 06:14:49 STEMI NO LONGER PRESENT Electronically Signed On 08-23-2024 14:11:28 CDT by Sary Cornejo M.D.
[2024-08-21] MEDS: oxyCODONE/ACETAMINOPHEN (*CRX) 5-325 MG TABLET 1 TABLET PO (20:01)
[2024-08-21] MEDS: GABAPENTIN 300 MG CAPSULE PO (20:01)
[2024-08-21] MEDS: TICAGRELOR 90 MG TABLET PO (20:02)
[2024-08-22] VITALS (10 sets, daily range): BP systolic 112–143; BP diastolic 74–92; PULSE 65–87; RESP 12–20; TEMP 36.8–37.2; O2SAT 94–98
--- NOTE | 2024-08-22 | ECHO_ITS ---
Patient Info Name: Antonio Villagomez Age: 58 years : 1965 Gender: Male Ht: 72 in Wt: 167 lbs BSA: 1.96 m2 HR: 72 bpm BP: 137 / 74 mmHg Heart Rhythm: Sinus Rhythm Technical Quality: Good Exam Date: 08/22/2024 7:57 AM Exam Location: Echo Lab Patient Status: Inpatient Admit Date: 08/21/2024 Staff Ordering Physician: Daly Lofton MD ([email or web address]/karen) [employer] Con[employer] Ironworker: Eden Schrader RDCS Attending Provider: Daly Lofton MD (randi) Exam Type: CA echo dop color flow w con Study Info Indications - stemi Complete two-dimensional, color flow and Doppler transthoracic echocardiogram is performed with contrast to opacify the left ventricle and to improve the deliniation of the left ventricle endocardial borders. Contrast/Agitated Saline Contrast/Ag. Saline: Definity Amount: 3.00 ml Administered By: Eden Schrader RDCS Existing IV Access: Yes IV Access Condition: patent with no signs of infiltration Summary 1. The left ventricle is normal in size and systolic function. The left ventricular ejection fraction is visually estimated to be 50-55%. The mid to distal anterolateral and distal anterior wall are mildly hypokinetic. 2. There are no significant valvular abnormalities visualize in this study. Left Ventricle The left ventricle is normal in size and systolic function. The left ventricular ejection fraction is visually estimated to be 50-55%. The mid to distal anterolateral and distal anterior wall are mildly hypokinetic. Right Ventricle The right ventricle is normal in size and systolic function. Left Atria The left atrium is normal size. Right Atria The right atrium is normal size. Atrial Septum The atrial septum is normal. Aortic Valve The aortic valve is not well visualized. There is no Doppler gradients to suggest significant stenosis or regurgitation. Pulmonic Valve The pulmonic valve is not well visualized. There is no color Doppler evidence of pulmonic valve regurgitation. Mitral Valve The mitral valve is grossly normal. There is no mitral regurgitation. Tricuspid Valve The tricuspid valve is grossly normal. There is trace tricuspid regurgitation. Pericardium/Pleural Pericardium is normal in appearance with no evidence for significant pericardial effusion. Inferior Vena Cava Normal inferior vena cava with >50% collapse upon inspiration consistent with normal right atrial pressure, 3 mmHg. Aorta The aortic root at the level of the sinus of Valsalva measures 3.0 cm in diameter. Left Ventricular Outflow Tract Name Value Normal LVOT 2D LVOT Diameter 1.97 cm LVOT Doppler LVOT Peak Gradient 4 mmHg LVOT Mean Gradient 2 mmHg LVOT VTI 17.98 cm LVOT VTI/AV VTI Ratio 0.80 LVOT Stroke Volume 54.65 ml LVOT CO 3.75 l/min LVOT CI 1.91 L/min/m2 Pulmonic Valve Name Value Normal RVOT Doppler RVOT Peak Gradient 2 mmHg PV Doppler PV Peak Gradient 3 mmHg Mitral Valve Name Value Normal MV Doppler MV Decel [place] 334.36 cm/s2 MV PHT 0 s MV Area (PHT) 3.80 cm2 4.00-5.00 MV Diastolic Function MV E Peak Velocity 66.79 cm/s MV A Peak Velocity 50.68 cm/s MV E/A 1.32 MV Decel Time 0 s MV Annular TDI MV E/e' (Septal) 10.45 <=8.00 MV E/e' (Lateral) 6.45 <=8.00 MV E/e' (Average) 8.45 Tricuspid Valve Name Value Normal TV Regurgitation Doppler TR Peak Velocity 271.86 cm/s TR Peak Gradient 30 mmHg Estimated PAP/RSVP RA Pressure 3 mmHg <=5 PA Systolic Pressure 33 mmHg <36 RV Systolic Pressure 33 mmHg <36 Aorta Name Value Normal Ascending Aorta Ao Root Diameter (MM) 3.47 cm Ao Root Diam Index (MM) 1.77 cm/m2 Aortic Valve Name Value Normal AV Doppler AV Peak Velocity 124.13 cm/s AV Peak Gradient 6 mmHg AV Mean Gradient 3 mmHg AV VTI 22.62 cm AV Area (Cont Eq VTI) 2.42 cm2 >=3.00 AV Area (Cont Eq Dominick) 2.40 cm2 AV Regurgitation 2D LVOT Area 3.04 cm2 Ventricles Name Value Normal LV Dimensions 2D/MM IVS Diastolic Thickness (2D) 0.88 cm 0.60-1.00 LVID Diastole (2D) 5.47 cm 4.20-5.80 LVIW Diastolic Thickness (2D) 0.86 cm 0.60-1.00 LVID Systole (2D) 3.90 cm 2.50-4.00 LVOT Diameter 1.97 cm LV Mass (2D Cubed) 175.64 g 88.00-224.00 LV Mass Index (2D Cubed) 0.01 g/cm2 0.00-0.01 Relative Wall Thickness (2D) 0.31 LV Fractional Shortening/Ejection Fraction 2D/MM LV Fractional Shortening (2D) 29 % 25-43 LV EF (2D Teicholz) 55 % 52-72 LV Diastolic Volume (4C MOD) 90.95 ml LV EF (4C MOD) 48 % LV Diastolic Volume (2C MOD) 101.14 ml LV EF (2C MOD) 42 % LV Diastolic Volume (BP MOD) 96.38 ml 62.00-150.00 LV Diastolic Volume Index (BP MOD) 0.05 l/m2 0.03-0.07 LV Systolic Volume (BP MOD) 53.00 ml 21.00-61.00 LV Systolic Volume Index (BP MOD) 0.03 l/m2 0.01-0.03 LV EF (BP MOD) 45 % 52-72 LV Diastolic Length (4C) 7.93 cm LV Systolic Length (4C) 6.74 cm LV Stroke Volume (4C MOD) 44.08 ml Atria Name Value Normal LA Dimensions LA Dimension (MM) 3.60 cm 3.00-4.10 LA Volume (4C A-L) 38.56 ml LA Volume (BP A-L) 48.22 ml RA Dimensions RA Area (4C) 13.25 cm2 <=18.00 Report Signatures
[2024-08-22 01:53] LABS: Partial Thromboplastin Time 50.1 Seconds (22.3-36.8)
[2024-08-22] MEDS: HEPARIN SODIUM 5,000 UNITS/ML VIAL 4000 UNITS IV PUSH (02:04)
[2024-08-22 08:06] LABS: Basophils Percent Auto 0.4 % (0.2-1.2); Eosinophils Absolute Auto 0.1 K/mm3 (0-0.3); Eosinophils Percent Auto 1.1 % (0-4.4); Hemoglobin 12.4 g/dL (14.0-18.0); Immature Granulocyte Absolute 0.03 K/mm3 (0.00-0.031); Immature Granulocyte Percent A 0.4 % (0-0.5); Lymphocytes Absolute Auto 1.72 K/mm3 (0.9-3.2); Lymphocytes Percent Auto 24.5 % (18.3-44.2); Mean Corpuscular HGB Conc 32.6 g/dl (32-36); Mean Corpuscular Hemoglobin 29.5 pg (26-34); Mean Corpuscular Volume 90.5 fl (80-100); Monocytes Absolute Auto 0.6 K/mm3 (0.1-0.6); Neutrophils Absolute Auto 4.6 K/mm3 (1.3-6.7); Neutrophils Percent Auto 65.6 % (45.5-73.1); Nucleated Red Blood Cells Perc 0.3 % (0.0-0.2); Platelet Count Result 168 k/mm3 (150-375); Red Cell Distribution Width 13.8 % (11.5-14.5)
--- NOTE | 2024-08-22 08:10 | ECG_ITS ---
Test Date: 2024-08-22 09:44:25 Measurements Intervals [place] Rate: 82 P: 66 DE: 144 QRS: 11 QRSD: 107 T: 115 QT: 378 QTc: 443 Interpretive Statements SINUS RHYTHM INCOMPLETE RIGHT BUNDLE BRANCH BLOCK [90+ ms QRS DURATION, TERMINAL R IN V1/V2, 40+ ms S IN I/aVL/V4/V5/V6] MODERATE T-WAVE ABNORMALITY, CONSIDER LATERAL ISCHEMIA [-0.1+ mV T WAVE IN I/aVL/V5/V6] Compared to ECG 08/21/2024 19:57:57 NO SIGNIFICANT CHANGES Electronically Signed On 08-23-2024 14:34:05 CDT by Sary Cornejo M.D.
[2024-08-22 08:17] LABS: Partial Thromboplastin Time 73.7 Seconds (22.3-36.8)
[2024-08-22 08:19] LABS: Alanine Aminotransferase 55 U/L (6-50); Alkaline Phosphatase 49 U/L (38-126); Anion Gap 7 mmol/L (4-12); Aspartate Amino Transferase 93 U/L (17-59); Bilirubin,Total 1.3 mg/dL (0.2-1.3); Blood Urea Nitrogen 12 mg/dL (9-20); Calcium 8.6 mg/dL (8.4-10.2); Carbon Dioxide 25 mmol/L (22-30); Chloride 106 mmol/L (98-107); Estimated CRCL calculation 84 ml/min; Estimated Glomerular Filt Rate > 60; Glucose 105 mg/dL (65-110); Magnesium 1.5 mg/dL (1.6-2.3); Potassium 3.8 mmol/L (3.4-5.0); Sodium 138 mmol/L (137-145)
[2024-08-22] MEDS: PERFLUTREN LIPID MICROSPHERES 1.5 ML VIAL DILUTED TO 10 ML TOTAL VOLUME IV PUSH (08:25)
[2024-08-22] MEDS: HEPARIN SOD/D5W 100 UNITS/ML 25,000 UNITS/250 ML BAG 15 UNITS IV CONT (08:31)
--- NOTE | 2024-08-22 08:58 | P.PNINT_ITS ---
Progress Note: A&P Assessment and Plan (1) ST elevation (STEMI) myocardial infarction: Qualifiers: Involved coronary artery: other coronary artery Qualified Code(s): I21.29 - ST elevation (STEMI) myocardial infarction involving other sites Code(s): I21.3 - ST elevation (STEMI) myocardial infarction of unspecified site Status: Acute Assessment and Plan: lateral STEMI status post PCI and drug-eluting stent placement Admitted to ICU and ICU telemetry monitoring pending echocardiogram continue dual antiplatelet therapy with aspirin and Brilinta, atorvastatin, beta-nadeem will discuss with Cardiology regarding discontinuing heparin infusion and adding losartan or ETELVINA-inhibitor (2) Hyperlipidemia: Code(s): E78.5 - Hyperlipidemia, unspecified Status: Acute Assessment and Plan: atorvastatin (3) Tobacco abuse: Code(s): Z72.0 - Tobacco use Status: Acute Assessment and Plan: patient was encouraged and counseled to quit smoking. (4) ADHD: Code(s): F90.9 - Attention-deficit hyperactivity disorder, unspecified type Status: Acute Assessment and Plan: Adderall is on hold at this time Plan DVT prophylaxis - currently on heparin infusion Nutrition - Diet ordered Code Status - Full Code transfer out of ICU today Subjective Date/time seen: 08/22/24 patient states he slept well but complains of pain in the chest that started last night. He states the pain is 2/10 achy in quality And does not radiate. no aggravating or relieving factors. He was given Percocet overnight and he states the pain went away with Percocet but now it seems that it is coming back after few hours. He denies any other complaints. Patient denies fever,, shortness of breath, cough, nausea vomiting, abdominal pain,, diarrhea, headache or constipation. all other systems were reviewed and negative he is on heparin infusion. He is afebrile blood pressure is slightly elevated. Review of Systems Review of Systems: All systems reviewed & are unremarkable except as noted in HPI and below ( HPI) Exam Narrative: General: Pt is alert awake and in NAD Lungs/Chest: Trachea central Clear BS B/L, No crackles or wheezing. Cardiac: RRR. Normal S1 S2. No murmurs Circulation: Pedal pulses are intact and symmetrical. right groin cath site shows no hematoma or swelling. Abdomen: Normal bowel sounds.. Soft. NT. ND. Extremities: No clubbing, cyanosis or edema. Warm : De in place Neurologic: Follows commands. Moves all 4 extremities PERRL AO x3 Skin: No Rash Objective Data Vital Signs Vital Signs: Vital Signs - 24 hr 08/21/24 09:10 08/21/24 09:45 08/21/24 10:00 Temperature Pulse Rate 84 83 89 Pulse Rate [Bilateral Pedal (Dorsalis Pedis) Palpation] 84 83 Respiratory Rate 18 13 Blood Pressure 123/86 132/83 Pulse Oximetry 98 100 Oxygen Delivery 08/21/24 10:00 08/21/24 10:10 08/21/24 10:27 Temperature Pulse Rate 89 89 77 Pulse Rate [Bilateral Pedal (Dorsalis Pedis) Palpation] 89 Respiratory Rate 12 12 Blood Pressure 131/88 131/88 Pulse Oximetry 99 99 Oxygen Delivery 08/21/24 11:10 08/21/24 12:00 08/21/24 12:00 Temperature Pulse Rate 83 75 Pulse Rate [Bilateral Pedal (Dorsalis Pedis) Palpation] 83 Respiratory Rate 12 13 Blood Pressure 118/75 124/84 Pulse Oximetry 98 97 98 Oxygen Delivery Room Air 08/21/24 12:00 08/21/24 12:10 08/21/24 13:10 Temperature Pulse Rate 71 75 78 Pulse Rate [Bilateral Pedal (Dorsalis Pedis) Palpation] Respiratory Rate 13 17 Blood Pressure 125/77 115/74 Pulse Oximetry 97 97 Oxygen Delivery 08/21/24 14:00 08/21/24 14:00 08/21/24 14:10 Temperature Pulse Rate 68 73 77 Pulse Rate [Bilateral Pedal (Dorsalis Pedis) Palpation] Respiratory Rate 15 15 Blood Pressure 140/98 H 140/98 H Pulse Oximetry 98 97 Oxygen Delivery 08/21/24 16:00 08/21/24 16:00 08/21/24 16:00 Temperature Pulse Rate 73 74 Pulse Rate [Bilateral Pedal (Dorsalis Pedis) Palpation] Respiratory Rate 18 Blood Pressure 169/110 H Pulse Oximetry 97 98 Oxygen Delivery Room Air 08/21/24 18:00 08/21/24 18:00 08/21/24 20:00 Temperature Pulse Rate 90 90 Pulse Rate [Bilateral Pedal (Dorsalis Pedis) Palpation] Respiratory Rate 16 Blood Pressure 134/82 Pulse Oximetry 98 Oxygen Delivery Room Air 08/21/24 20:00 08/21/24 20:00 08/21/24 20:01 Temperature 37.0 C Pulse Rate 73 73 73 Pulse Rate [Bilateral Pedal (Dorsalis Pedis) Palpation] Respiratory Rate 17 Blood Pressure 141/90 H Pulse Oximetry 99 Oxygen Delivery 08/21/24 22:00 08/21/24 22:00 08/21/24 23:57 Temperature Pulse Rate 72 83 Pulse Rate [Bilateral Pedal (Dorsalis Pedis) Palpation] Respiratory Rate 20 Blood Pressure 134/73 Pulse Oximetry 96 Oxygen Delivery Room Air 08/22/24 00:00 08/22/24 00:00 08/22/24 02:00 Temperature 37.1 C Pulse Rate 65 65 73 Pulse Rate [Bilateral Pedal (Dorsalis Pedis) Palpation] Respiratory Rate 14 Blood Pressure 140/89 Pulse Oximetry 97 Oxygen Delivery 08/22/24 02:00 08/22/24 04:00 08/22/24 04:00 Temperature 36.9 C Pulse Rate 73 65 65 Pulse Rate [Bilateral Pedal (Dorsalis Pedis) Palpation] Respiratory Rate 16 12 Blood Pressure 116/81 118/74 Pulse Oximetry 97 96 Oxygen Delivery 08/22/24 04:00 08/22/24 06:00 08/22/24 06:00 Temperature Pulse Rate 72 72 Pulse Rate [Bilateral Pedal (Dorsalis Pedis) Palpation] Respiratory Rate 19 Blood Pressure 137/74 Pulse Oximetry 94 Oxygen Delivery Room Air 08/22/24 08:00 Temperature 37.2 C Pulse Rate 78 Pulse Rate [Bilateral Pedal (Dorsalis Pedis) Palpation] Respiratory Rate 20 Blood Pressure 143/81 H Pulse Oximetry 97 Oxygen Delivery Intake/Output Intake/Output: Intake & Output 08/19/24 08/20/24 08/21/24 08/22/24 23:59 23:59 23:59 23:59 Intake Total 558.6 571.4 Output Total 500 450 Balance 58.6 121.4 Meds/Results Medications: Active Medications Generic Name Dose Route Start Last Admin Trade Name Freq PRN Reason Stop Dose Admin Acetaminophen 650 mg 08/21/24 13:55 08/21/24 14:09 Acetaminophen 325 Mg Tablet PO 650 mg Q4H PRN Administration Headache or fever Aspirin 81 mg 08/22/24 09:00 Aspirin 81 Mg Enteric Tablet PO [facility] Atorvastatin Calcium 80 mg 08/21/24 09:00 08/21/24 10:26 Atorvastatin 40 Mg Tablet PO 80 mg DAILY VAN Administration Carvedilol 12.5 mg 08/22/24 09:00 Carvedilol 12.5 Mg Tablet PO Q12HR [facility] Gabapentin 300 mg 08/21/24 21:00 08/21/24 20:01 Gabapentin 300 Mg Capsule PO 300 mg QHS VAN Administration Hydralazine HCl 10 mg 08/21/24 17:27 08/21/24 17:32 Hydralazine Hcl 20 Mg/Ml Vial IV PUSH 10 mg Q4H PRN Administration Blood Pressure - High Oxycodone/Acetaminophen 1 tablet 08/21/24 19:39 08/21/24 20:01 Oxycodone/Acetaminophen (*Crx) 5-325 Mg Tablet PO 1 tablet Q6H PRN Administration Pain Rated 7-10 Perflutren Lipid Microsphere 0 ml 08/21/24 08:27 Perflutren Lipid Microspheres 1.5 Ml Vial Diluted To 10 Ml Total Volume IV PUSH 08/24/24 08:27 ONCE PRN adequate visualization Protocol Ticagrelor 90 mg 08/21/24 21:00 08/21/24 20:02 Ticagrelor 90 Mg Tablet PO 90 mg Q12HR VAN Administration Labs Labs: Laboratory Results - last 24 hr 08/21/24 08/21/24 08/21/24 09:35 12:20 17:37 WBC RBC Hgb Hct MCV MCH MCHC RDW Plt Count MPV Immature Gran % (Auto) Neut % (Auto) Lymph % (Auto) [place] % (Auto) Eos % (Auto) Baso % (Auto) Lymph # (Auto) [place] # (Auto) Eos # (Auto) Baso # (Auto) Abs Immat Gran (auto) Absolute Neuts (auto) Absolute Nucleated RBC Nucleated RBC % APTT 34.8 Sodium Potassium Chloride Carbon Dioxide Anion Gap BUN Creatinine Estim Creat Clear Calc Estimated GFR Glucose Calcium Magnesium Total Bilirubin AST ALT Alkaline Phosphatase Troponin I 13.800 H* D 36.000 H* D Total Protein Albumin 08/22/24 08/22/24 00:47 08:00 WBC 7.0 RBC 4.20 L Hgb 12.4 L Hct 38.0 L MCV 90.5 MCH 29.5 MCHC 32.6 RDW 13.8 Plt Count 168 MPV 10.0 Immature Gran % (Auto) 0.4 Neut % (Auto) 65.6 Lymph % (Auto) 24.5 [place] % (Auto) 8.0 Eos % (Auto) 1.1 Baso % (Auto) 0.4 Lymph # (Auto) 1.72 [place] # (Auto) 0.6 Eos # (Auto) 0.1 Baso # (Auto) 0.0 Abs Immat Gran (auto) 0.03 Absolute Neuts (auto) 4.6 Absolute Nucleated RBC 0.020 H Nucleated RBC % 0.3 H APTT 50.1 H 73.7 H Sodium 138 Potassium 3.8 Chloride 106 Carbon Dioxide 25 Anion Gap 7 BUN 12 D Creatinine 0.80 Estim Creat Clear Calc 84 Estimated GFR > 60 Glucose 105 Calcium 8.6 Magnesium 1.5 L Total Bilirubin 1.3 AST 93 H ALT 55 H Alkaline Phosphatase 49 Troponin I Total Protein 6.0 L Albumin 4.0 Quality VTE Prophylaxis VTE prophylaxis: pharmacologic ordered
[2024-08-22] MEDS: ASPIRIN 81 MG ENTERIC TABLET PO (09:31)
[2024-08-22] MEDS: carvediloL 12.5 MG TABLET PO (09:31)
[2024-08-22] MEDS: TICAGRELOR 90 MG TABLET PO (09:31)
[2024-08-22] MEDS: ATORVASTATIN 40 MG TABLET 80 MG PO (09:31)
[2024-08-22] MEDS: oxyCODONE/ACETAMINOPHEN (*CRX) 5-325 MG TABLET 1 TABLET PO (09:49)
--- NOTE | 2024-08-22 12:23 | PM.DS ---
DS: Admitting Diagnosis Discharge Date 08/22/[address]-elevation [place] DS: Discharge Diagnosis Discharge Diagnosis (1) ST elevation (STEMI) myocardial infarction: Qualifiers: Involved coronary artery: other coronary artery Qualified Code(s): I21.29 - ST elevation (STEMI) myocardial infarction involving other sites Code(s): I21.3 - ST elevation (STEMI) myocardial infarction of unspecified site Status: Acute Assessment and Plan: Patient is now status post PCI to the diagonal with significant improvement in his symptoms. He had some shortness of breath today for which Lasix 40 mg IV was administered; potassium level is 3.8 and given only 1 time dose of Lasix, no supplementation required this time Patient can follow-up for a transthoracic echocardiogram He is now placed on aspirin 81 mg p.o. daily and ticagrelor 90 mg p.o. b.i.d. (2) Hyperlipidemia: Code(s): E78.5 - Hyperlipidemia, unspecified Status: Acute Assessment and Plan: He is on atorvastatin 80 mg every evening (3) Hypertension: Code(s): I10 - Essential (primary) hypertension Status: Acute Assessment and Plan: He is now on carvedilol 6.25 mg p.o. b.i.d. Plan 58-year-old man with ADHD and hyperlipidemia presented with chest pain found to have lateral ST elevation AK who is now status post PCI to the diagonal branch -plan as listed above -all questions have been answered satisfactorily -patient will follow-up in cardiology clinic -cardiac rehab will be prescribed DS: Summary Hospital Course Hospital Course: 58-year-old man with ADHD and hyperlipidemia presented with chest pain found to have lateral ST elevation [place] who is now status post PCI to the diagonal branch. He is doing much better and is on optimal medical therapy which can be further titrated in the outpatient clinic. Time Spent with Patient Time attestation: Total time spent providing and/or coordinating discharge services: Time spent: Greater than 30 minutes Exam Const: General: comfortable HENMT: Mouth: Yes moist mucous membranes Eyes: EOM: EOMs intact bilaterally Neck: Neck: no JVD Resp: Effort & Inspection: normal respiratory effort Other: Decreased breath sounds over the left lungs Cardio: Rate: regular rate Rhythm: regular rhythm GI: GI Palp: Yes Soft to palpation Extrem: General: no pedal edema Other: Right groin dressing removed. No hematoma. No thrill. Pulses 2+. DS: Data Data Completed and Pending Labs on day of discharge: Labs from last 24 hours 08/22/24 08/22/24 08/21/24 08:00 00:47 17:37 WBC 7.0 RBC 4.20 L Hgb 12.4 L Hct 38.0 L MCV 90.5 MCH 29.5 MCHC 32.6 RDW 13.8 Plt Count 168 MPV 10.0 Immature Gran % (Auto) 0.4 Neut % (Auto) 65.6 Lymph % (Auto) 24.5 [place] % (Auto) 8.0 Eos % (Auto) 1.1 Baso % (Auto) 0.4 Lymph # (Auto) 1.72 [place] # (Auto) 0.6 Eos # (Auto) 0.1 Baso # (Auto) 0.0 Abs Immat Gran (auto) 0.03 Absolute Neuts (auto) 4.6 Absolute Nucleated RBC 0.020 H Nucleated RBC % 0.3 H APTT 73.7 H 50.1 H 34.8 Sodium 138 Potassium 3.8 Chloride 106 Carbon Dioxide 25 Anion Gap 7 BUN 12 D Creatinine 0.80 Estim Creat Clear Calc 84 Estimated GFR > 60 Glucose 105 Calcium 8.6 Magnesium 1.5 L Total Bilirubin 1.3 AST 93 H ALT 55 H Alkaline Phosphatase 49 Troponin I Total Protein 6.0 L Albumin 4.0 08/21/24 12:20 WBC RBC Hgb Hct MCV MCH MCHC RDW Plt Count MPV Immature Gran % (Auto) Neut % (Auto) Lymph % (Auto) [place] % (Auto) Eos % (Auto) Baso % (Auto) Lymph # (Auto) [place] # (Auto) Eos # (Auto) Baso # (Auto) Abs Immat Gran (auto) Absolute Neuts (auto) Absolute Nucleated RBC Nucleated RBC % APTT Sodium Potassium Chloride Carbon Dioxide Anion Gap BUN Creatinine Estim Creat Clear Calc Estimated GFR Glucose Calcium Magnesium Total Bilirubin AST ALT Alkaline Phosphatase Troponin I 36.000 H* D Total Protein Albumin Discharge Plan Discharge Attending physician on discharge: Hesham Paul Discharging Clinician: Hesham Paul Patient Disposition: Home Activity: other - see discharge instructions Diet: heart healthy Wound Care Instructions: incision open to air Patient Instructions: Metoprolol (By mouth), Atorvastatin (By mouth), Ticagrelor (By mouth), Heart Attack (GEN), Heart Catheterization (DC) Patient Language: [place] Stand Alone Forms: General Discharge Instructions Follow-up/Referrals: PHYSICIAN,RETIREMENT SALES CONSULTANT [Primary Care Provider] - Discharge Medications: New aspirin 81 mg Tablet,Delayed Release (Dr/Ec) 81 mg PO QAM Qty: 90 0RF carvedilol [Coreg] 12.5 mg Tablet 12.5 mg PO Q12HR Qty: 90 0RF atorvastatin 40 mg Tablet 80 mg PO HS Qty: 90 0RF ticagrelor [Brilinta] 90 mg Tablet 90 mg PO Q12HR Qty: 90 0RF Continued ropinirole 1 mg tablet 1 mg PO DIRECTED dextroamphetamine-amphetamine 10 mg tablet 10 mg PO DAILY lorazepam 0.5 mg tablet 0.5 mg PO DIRECTED valacyclovir 1 gram tablet 1,000 mg PO PRN gabapentin 300 mg capsule 300 mg PO QHS Discontinued pravastatin 10 mg tablet 10 mg PO DAILY Date of admission: 08/21/24 08:32 Primary Care Provider: PHYSICIAN,RETIREMENT SALES CONSULTANT Admitting Provider: Daly Lofton Attending physician on admission: Daly Lofton Condition: Stable
--- NOTE | 2024-08-22 12:32 | IVDEFINITY ---
Prior to administration of IV Definity the patient was educated on the risks and benefits of the imaging enhancing agent including potential adverse side effects. The patient verbalized understanding. Allergies were verified. No exclusion criteria were identified and at least one of the following inclusion criteria were met: 1) physician request, 2) patient technically difficult to image (per the [place] [employer] guidelines of two or more segments not discernable within the apical view), or 3) questionable left ventricular function.
[2024-08-22] MEDS: FUROSEMIDE INJ 40 MG/4 ML VIAL IV PUSH (12:43)
--- NOTE | 2024-08-22 17:01 | PC.NURSE ---
All pt belongings returned to patient at time of discharge and confirmed possession of Stent Card, Medications (specifically Brilinta), and Discharge instructions/education. x2 IVs removed and covered with 2x2 gauze and tape. Reinforced education regarding recurrence of bleeding at IV and Cardiac cath sites. Antonio was taken to main entrance via wheelchair where his ride was waiting. D/c @ [id number].
== END 2024-08-22 16:44 | disposition home or self-care (01) | DRG 322 ==
LOC: ANHED 06:41 → ANHSURGERY 06:41 → ANHICU 08:45
PROVIDERS: Internal Medicine; Admitting Provider Internal Medicine Interventional Cardiology; Emergency Provider Emergency Medicine; Visit Provider Internal Medicine
PROC: 4A023N7 Measurement of Cardiac Sampling and Pressure, Left Heart, Percutaneous Approach (ICD-10-PCS; CPT 93452; principal; 2024-08-21 06:30)
PROC: 027034Z Dilation of Coronary Artery, One Artery with Drug-eluting Intraluminal Device, Percutaneous Approach (ICD-10-PCS; CPT 92928; 2024-08-21 06:30)
PROC: 027034Z Dilation of Coronary Artery, One Artery with Drug-eluting Intraluminal Device, Percutaneous Approach (ICD-10-PCS; 2024-08-21 06:30)
PROC: 027034Z Dilation of Coronary Artery, One Artery with Drug-eluting Intraluminal Device, Percutaneous Approach (ICD-10-PCS; 2024-08-21 06:30)
DX: I21.29 ST elevation (STEMI) myocardial infarction involving other sites (principal); F17.210 Nicotine dependence, cigarettes, uncomplicated; E78.5 Hyperlipidemia, unspecified; F90.9 Attention-deficit hyperactivity disorder, unspecified type
CPT/HCPCS: 36415; 80053; 80061; 83735; 84484; 85025; 85610; 85730; 86850; 86900; 86901; 92978; 93005; 93458; 96361; 96374; 96375; 99291; A9270; C1725; C1753; C1760; C1769; C1874; C1887; C1894; C7532; C8929; C9606; G0269; J0360; J1644; J1938; J2003; J2250; J2270; J2305; J3010; J7030; J7040; Q9957